=== PATIENT | female | born 1965 | race Caucasian/White ===

== ENCOUNTER 2025-05-16 13:33 | Inpatient (IN) | payer MEDICARE, MEDICAID, SELFPAY ==
[2025-05-16] VITALS (10 sets, daily range): BP systolic 130–149; BP diastolic 63–85; PULSE 74–176; RESP 15–26; TEMP 35.8–36.3; O2SAT 91–98; BMI 28.6
--- NOTE | 2025-05-16 13:39 | PCM.HP.STD ---
HPI - General General Date of Admission: 05/16/25 Date of Service: 05/16/25 Chief Complaint: Worsen shortness of breath HPI Narrative GET BANKS, is a 59 F who presented to [facility] on 05/16/2025 as a transfer from [place] for worsening shortness of breath. Patient was recently diagnosed with non-small cell lung cancer and saw Dr. Meyers in the office here on 05/13. She lives in [place] and she initially was hospitalized there in February with shortness of breath and found to have a left upper lobe mass. Underwent bronchoscopy with biopsy there that showed 40 differentiated malignant epithelioid neoplasm favoring non-small cell carcinoma. She established with oncology here and the plan is for port placement next week on 05/21 and then initiation of chemotherapy with Nivo/Ipi/Taxol/Carboplatin. On review of [facility] records, patient was hospitalized in [place] from 04/30-05/03 for shortness of breath and weakness. Chest x-ray then showed known left upper lobe masslike infiltrates with new interstitial markings concerning for pneumonia versus pneumonitis. She was treated for COPD exacerbation and pneumonia there with good improvement and she was discharged home on 2 L of oxygen. She has now noticed worsening shortness of breath with exertion especially over the past few days and she went to the [facility] ED for this. Chest x-ray report there noted complete opacification of the left hemithorax with shift of the mediastinal structures to the left with suspected atelectasis versus left-sided pleural effusion. She was given a dose of IV antibiotics for concern for postobstructive pneumonia and then transferred here for further evaluation. I saw the patient shortly after she arrived here. She was breathing comfortably on 4 L nasal cannula with saturations in the mid 90s. She denied any shortness of breath at rest but did note significant shortness of breath with minimal exertion. Denies cough or sputum production. Denies any fevers or chills. She has had pain associated with her cancer primarily in her left lower chest area underneath the breast and at that level in the left back as well. She has been on Percocet every 6 hours as needed for this with moderate relief of pain. She denies any other acute concerns currently. [facility] Medical History Requires oxygen therapy Anxiety Depression Allergic rhinitis Neuropathy GERD (gastroesophageal reflux disease) Lumbar radiculopathy Hyperlipidemia Diabetes Hypertension SVT (supraventricular tachycardia) COPD (chronic obstructive pulmonary disease) Nicotine abuse Mass of upper lobe of left lung Home Medications ?Medication ?Instructions ?Recorded ?Last Taken ?Type Supplemental Oxygen 2 l inhalation .continuous oxygen 04/16/25 05/16/25 History aspirin 81 mg tablet,delayed 81 mg PO QDAY heart health 04/16/25 05/15/25 History release (Adult Aspirin Regimen) escitalopram oxalate 20 mg tablet 20 mg PO QDAY mood 04/16/25 05/15/25 History gabapentin 300 mg capsule 300 mg PO TID neuropathy 04/16/25 05/14/25 History glimepiride 1 mg tablet 1 mg PO BID diabetes 04/16/25 05/14/25 History losartan 50 mg tablet 50 mg PO QDAY blood pressure 04/16/25 05/14/25 History mirtazapine 7.5 mg tablet 7.5 mg PO QDAY depression 04/16/25 05/14/25 History pravastatin 40 mg tablet 40 mg PO QHS cholesterol 04/16/25 05/14/25 History albuterol sulfate 90 mcg/actuation 2 puff inhalation Q4 PRN wheezing 04/23/25 05/16/25 History aerosol inhaler buspirone 10 mg tablet 10 mg PO TID PRN anxiety 04/23/25 05/14/25 History fluticasone furoate 200 1 ea inhalation QDAY breathing 04/23/25 05/14/25 History mcg-vilanterol 25 mcg/dose inhalation powder ipratropium 0.5 mg-albuterol 3 mg 3 ml inhalation Q4H PRN breathing 04/23/25 Unknown History (2.5 mg base)/3 mL nebulization soln multivitamin 1 tab PO QAM supplement 04/23/25 05/14/25 History ondansetron HCl 4 mg tablet 4 mg PO Q8H PRN nausea and vomiting 04/23/25 05/15/25 History tiotropium bromide 18 mcg capsule 1 cap inhalation QDAY breathing 04/23/25 05/15/25 History with inhalation device (Spiriva with HandiHaler) amoxicillin 500 mg-potassium 1 tab PO BID infection 05/13/25 05/16/25 History clavulanate 125 mg tablet (Augmentin) insulin glargine 100 unit/mL (3 40 unit subcut QHS diabetes 05/13/25 05/15/25 History mL) subcutaneous pen (Lantus Solostar U-100 Insulin) insulin lispro 100 unit/mL 10 unit subcut TID diabetes 05/13/25 05/15/25 History subcutaneous pen oxycodone-acetaminophen 5 mg-325 1 tab PO Q6H PRN pain 15 days #60 05/13/25 05/16/25 Rx mg tablet (Percocet) tabs Allergy/AdvReac Type Severity Reaction Status Date / Time Sulfa (Sulfonamide Allergy Vomiting Verified 05/13/25 13:23 Antibiotics) Family History Brother Cancer Prostate Grandmother Cancer Lung Surgical History History of arthroscopy of right knee History of lung biopsy Social History Smoking Status: Former smoker how long ago did patient quit smoking: Recently alcohol intake: never substance use type: marijuana ROS Constitutional Constitutional: Reports fatigue; Denies chills, fever(s) or weakness Eyes Eyes: Denies change in vision Cardiovascular Cardiovascular: Reports dyspnea on exertion and palpitations; Denies chest pain, edema or lightheadedness Respiratory/Chest Respiratory/Chest: Reports shortness of breath with exertion; Denies cough, productive cough, shortness of breath at rest or wheezing Gastrointestinal Gastrointestinal: Denies abdominal pain Musculoskeletal Musculoskeletal: Reports back pain; Denies arthralgias or myalgias Neurologic Neurologic: Denies dizziness, focal weakness or headache(s) Physical Exam Const alert, oriented x3, no apparent distress and average body habitus Constitutional Narrative: Upper middle-aged female, appears older than stated age, fatigued appearing but otherwise sitting back fairly comfortably in bed, conversing normally, in no acute distress. General Appearance: cooperative and comfortable HEENT normocephalic, head/scalp atraumatic, hearing grossly normal bilaterally, nasal mucous membranes and turbinates normal and moist oral mucous membranes Eyes PERRL, EOMs intact bilaterally and conjunctivae normal Neck full ROM Chest inspection of chest normal Resp normal respiratory effort and no use of accessory muscles Resp Narrative: Breathing comfortably on 4 L nasal cannula at rest. Severely diminished breath sounds on the left side throughout. Mildly diminished breath sounds in right lung base with mild crackles noted in mid right lung zone. No wheezing noted. Cardio regular rate, regular rhythm, no murmurs and peripheral pulses 2+ throughout GI normal to inspection, nondistended, normoactive bowel sounds, soft to palpation, non-tender and non-distended Back/Spine normal ROM Extremity normal to inspection, full ROM and no pedal edema Skin no rashes or lesions noted Neuro moves all extremities and no focal motor deficits Speech: speech normal Motor Exam: strength 5/5 throughout Psych mental status grossly normal Results Lab / Micro Data 05/16/25 14:58 05/16/25 14:58 Assessment & Plan Assessment/Plan (1) Non-small cell lung cancer: QUALIFIERS: Laterality: left Qualified Code(s): C34.92 - Malignant neoplasm of unspecified part of left bronchus or lung (2) Pleural effusion, left: PLAN: Plan Patient is a 59-year-old female who presented [facility] on 05/16/2025 as a transfer from [facility] in [place] for worsening shortness of breath. 1. Acute hypoxia in setting of COPD with chronic hypoxic respiratory failure due to non-small cell lung cancer with worsening left-sided opacities and left pleural effusion ? Admit under inpatient status to PCU. Pulmonology consulted. Recent diagnosis of non-small cell lung cancer and follows with Dr. Meyers, see HPI for further details. CT chest on admit here shows complete opacification of the left IV thorax due to a combination of pleural effusion and postobstructive pneumonitis/volume loss in the left lung. Discussed with Dr. Ochoa with pulmonology and he recommended therapeutic thoracentesis and noted that given new cancer diagnosis with no chemotherapy or radiation initiated yet, will hold off bronchoscopy at this time. Radiology consulted for thoracentesis. Will treat with IV vancomycin and Zosyn for postobstructive pneumonia. Sputum culture ordered. On home 2 L and requiring 4 L on admit here. Continue home inhalers and wean supplemental oxygen as able. 2. New onset A-fib with RVR ? In normal sinus rhythm on arrival here but flipped into A-fib with RVR with rate in the 170s shortly after. Patient reports episodes of palpitations similar to this over the past few weeks but she has no prior diagnosis of A-fib noted. Suspect new A-fib is related to cardiac irritation from lung cancer as above. Given IV Cardizem bolus with conversion back to normal sinus rhythm. However, after breathing treatment she flipped back into A-fib with RVR. Will start on p.o. Cardizem 30 mg every 6 hours for now. Low threshold to utilize Cardizem drip as needed for uncontrolled A-fib. Will start heparin drip for anticoagulation now as well with plan for thoracentesis as above. Echocardiogram ordered. 3. Normocytic anemia ? Hemoglobin 9.3 on admit, MCV 80. Last hemoglobin in our system was 10.8 on 04/23. No active signs of bleeding noted. Iron studies with ferritin, B12 and folate ordered. Monitor daily CBC. 4. Acute on chronic debility ? PT/OT/case management consulted. Patient lives at home alone and reports worsening weakness at home along with severe shortness of breath with exertion. Appreciate therapy recommendations. 5. Cancer related pain ? Follows with Dr. Meyers as above. Continue oxycodone?acetaminophen 1 tablet every 6 hours as needed. 6. Type 2 diabetes mellitus with diabetic neuropathy ? Blood glucose on admit and A1c are pending. Will treat with reduced dose from home of Lantus 30 units at night and Humalog 7 units with meals plus sliding scale insulin, adjust as needed. Continue home gabapentin. 7. Anxiety/depression ? Stable. Continue home escitalopram, BuSpar as needed and mirtazapine at night. 8. Hypertension/hyperlipidemia ? Normotensive on admit here. However, given new onset A-fib as above we will hold home losartan for now. Continue home statin. DVT prophylaxis: Not indicated, on heparin drip CODE STATUS: Full code, verified Expected disposition: TBD Total clinical time spent by myself addressing the patient's medical issues, reviewing all the data, and collaborating with patient's care team: 75 minutes. Charges/Coding Visit Charges Inpatient E&M: 43660 Init Hosp L3
--- NOTE | 2025-05-16 14:25 | CT_ITS ---
PROCEDURE: CHEST WITHOUT CONTRAST 05/16/2025 REASON FOR EXAM: OUTSIDE CXR W/ L LUNG WHITEOUT History of lung cancer. TECHNIQUE: Chest CT without contrast. Coronal and Sagittal reconstruction series were provided. One or more dose reduction techniques were used (e.g., Automated exposure control, adjustment of the mA and/or kV according to patient size, use of iterative reconstruction technique RADIATION DOSE SUMMARY: CTDlvol: 15.37 MGy DLP: 572.4 mGycm COMPARISON: None FINDINGS: Hardware: A right-sided port a catheter is seen with the tip in the superior vena cava. Lymph nodes: Enlarged mediastinal lymph nodes. Heart and Vasculature: Coronary artery calcification. Coronary Artery Calcifications: Present Lungs and Airways: There is complete opacification of the left hemithorax due to a combination of a moderate-sized pleural effusion and volume loss and possible postobstructive pneumonitis of the right lung. There is narrowing of the intermediate stem bronchus on the left side. A neoplastic process should be ruled out. Small right pleural effusion with the right basilar infiltration and/or atelectasis. There is prominence of interstitial markings within the right lung suggestive of possible interstitial spread. Several scattered small non the script right pulmonary nodules. Upper Abdomen: Bilateral adrenal enlargement more prominent on the right side. Bones: Multilevel degenerative changes. CT/Chest without Contrast IMPRESSION: Coronary artery calcification (CAC) is is present Complete opacification of the left hemithorax due to a combination of pleural e ffusion and postobstructive pneumonitis/volume loss in the left lung. Narrowing of the left upper lobe and intermediate stem bronchus. Small right pleural effusion with right basilar infiltrate and interstitial toni nges in the right lung suggestive of lymphangitic spread. Multiple nodules seen in the right lung. Enlargement of the mediastinal lymph nodes. Reading Location: [place] [id number]
--- NOTE | 2025-05-16 15:25 | ECHOD_ITS ---
Reason For Study Reason For Study: ATRIAL FIB-FLUTTER Procedure This was a 2D Doppler, Color Flow transthoracic echocardiogram. Exam performed portable in patient room. Left Ventricle Normal size and thickness. The LV ejection fraction is 65 %. Normal diastology for age. Right Ventricle Normal right ventricle. Atria The left and right atria are normal. Mitral Valve Mild mitral annular calcification. Tricuspid Valve Normal tricuspid valve. Aortic Valve Trisinus/trileaflet aortic valve. Mildly calcified aortic valve annulus. Pulmonic Valve The pulmonic valve is not well visualized. Trivial pulmonic valve insufficiency. Great Vessels Normal sized aortic root. Pericardium/Pleural No pericardial effusion. MMode/2D Measurements & Calculations LVIDd: 4.6 cm IVSd: 0.75 cm Ao root diam: 2.7 cm LVIDs: 3.0 cm LVPWd: 1.1 cm RVDd: 2.8 cm FS: 34.7 % LAV(MOD-bp): 34.0 ml LVAd ap4: 21.3 cm2 SV(MOD-sp4): 34.3 ml LAV(MOD-bp) Indexed: 17.5 ml/m2 LVLd ap4: 6.4 cm SI(MOD-sp4): 17.6 ml/m2 LAV(MOD-sp2): 32.3 ml EDV(MOD-sp4): 56.4 ml LAV(MOD-sp4): 35.7 ml EDV(sp4-el): 60.0 ml LVAs ap4: 11.8 cm2 LVLs ap4: 5.2 cm ESV(MOD-sp4): 22.1 ml ESV(sp4-el): 23.1 ml EF(MOD-sp4): 60.8 % EF(sp4-el): 61.5 % SV(sp4-el): 36.9 ml LA A4 area: 14.6 cm2 LA dimension(2D): 2.9 cm RA A4 area: 13.9 cm2 TAPSE: 2.1 cm Time Measurements MV dec time: 0.20 sec Doppler Measurements & Calculations MV E max mateo: 95.4 cm/sec Lat Peak E' Mateo: 11.0 cm/sec Med Peak E' Mateo: 8.5 cm/sec MV A max mateo: 104.1 cm/sec E/E' lat: 8.7 E/E' med: 11.3 MV E/A: 0.92 Ao V2 max: 141.0 cm/sec LV V1 max: 133.1 cm/sec PA V2 max: 95.7 cm/sec Ao max P.0 mmHg LV V1 max P.1 mmHg ECHO/Echo Complete Interpretation Summary The LV ejection fraction is 65 %. Mild mitral annular calcification. Mildly calcified aortic valve annulus. Ordering Physician: Ion Staton Referring Physician: ROSANNA RAMOS Performed By: Laura Hawkins RDCS
[2025-05-16 15:52] LABS: Hematocrit 30.8 % (37-47); Hemoglobin 9.3 g/dL (12.0-15.0); Immature Granulocytes Count 0.050 X10^3/uL (0.0-0.0); Mean Corp Hgb Conc 30.2 g/dL (32-36); Mean Corpuscular Volume 80.4 fL (81-99); Mean Platelet Vol. 9.8 fl (6.2-12.0); NRBC Flagged by Analyzer 0 % (0-5); POSITIVE DIFFERENTIAL YES; Platelet Count 373 K/mm3 (150-450); RBC Distribution Width CV 16.4 % (11.6-14.6); RBC Distribution Width SD 47.8 fl (35.1-43.9); Red Blood Count 3.83 M/mm3 (4.2-5.4); White Blood Count 14.4 K/mm3 (4.4-11.0)
[2025-05-16] MEDS: Budesonide Respules 0.5 MG/2 ML AMPUL.NEB. INHALATION ×2 (16:16→20:30)
[2025-05-16] MEDS: Vancomycin HCl 2,000 MG in 0.9% Normal Saline (500mL Bag) 500 ML 250 MG IV (16:22)
[2025-05-16 17:05] LABS: Prothrombin Time (Protime)PT. 14.7 SECONDS (11.7-14.9)
[2025-05-16 17:06] LABS: Partial Thromboplast Time 31.4 Seconds (24.1-36.2)
[2025-05-16 17:17] LABS: Procalcitonin 0.16 ng/mL (<=0.10)
[2025-05-16 17:19] LABS: AST(SGOT) 16 U/L (<=31); Alanine Aminotransfer ALT/SGPT 6 U/L (<=34); Albumin, Serum 2.3 g/dL (3.4-4.8); Alkaline Phosphatase 126 U/L (35-104); Anion Gap 17 (5-15); BUN 12 mg/dL (4-19); BUN/Creat Ratio 14.1 RATIO (10-20); Calcium,Total 8.5 mg/dL (7.6-11.0); Carbon Dioxide 26.3 mmol/L (21.0-32.0); Chloride 89 mmol/L (98-108); Estimated Creatinine Clearance 74.36 ml/min (50-250); Globulin 4.6 g/dL (2.2-4.2); Glucose 587 mg/dL (70-99); Potassium 4.5 mmol/L (3.3-5.1)
--- NOTE | 2025-05-16 17:30 | PCM.RX.CS ---
Consult Antibiotic Management Pharmacy has been consulted to manage selected antibiotic: Vancomycin Type of Intervention Type of Consult: New start Suspected Infection Suspected Infection: Pneumonia Prior Doses of Antibiotics Prior Doses of Antibiotics Received/Current Regimen: Vancomycin 2000 mg IV x 1 given 05/16/25 @ 1622 Labs Labs: Sodium 132 mmol/L (133-145) L 05/16/25 14:58 Potassium 4.5 mmol/L (3.3-5.1) 05/16/25 14:58 Chloride 89 mmol/L (98-108) L 05/16/25 14:58 Carbon Dioxide 26.3 mmol/L (21.0-32.0) 05/16/25 14:58 Anion Gap 17 (5-15) H 05/16/25 14:58 BUN 12 mg/dL (4-19) 05/16/25 14:58 Creatinine 0.88 mg/dL (0.70-1.20) 05/16/25 14:58 Est GFR (MDRD) Non-Af 75 (>60) 05/16/25 14:58 BUN/Creatinine Ratio 14.1 RATIO (10-20) 05/16/25 14:58 Glucose 587 mg/dL (70-99) H* 05/16/25 14:58 Dosing Weight Weight used for dosin kg Estimated Creatinine Clearance Estimated Creatinine Clearance: ~ 74 Goal Trough Goal Trough: 15-20 mcg/mL Pharmacy Plan for Drug Dosing Pharmacy Plan for Drug Dosing: Vancomycin 2000 mg IV x 1 followed by 1250 mg q12h Pharmacy Service will continue to monitor and adjust dosing as required. Follow-Up Labs Follow-Up Labs: Trough: Vancomycin Date/Time Labs Ordered Labs to be done on [date and time ordered]: 05/18/25 @ 5024
[2025-05-16] MEDS: HEPARIN/D5w 25,000 UNITS 25,000 UNITS/250 ML IV.SOLN. 12.5 UNITS CONT INF (18:01)
[2025-05-16 18:16] LABS: LDH 381 U/L (84-246)
[2025-05-16 19:55] LABS: Ferritin 1440 ng/mL (22-378); Iron 17 ug/dL (50-170); Iron Binding Capacity,Unsat 104 ug/dL (228-428); Vitamin B12 498 pg/mL (180-914)
[2025-05-16 20:07] LABS: Iron Binding Capacity,Total 121 ug/dL (250-450)
[2025-05-16] MEDS: Piperacil/Tazobactam 3.375 GM in 0.9% Normal Saline (50mL MB+) 50 ML IV (22:05)
[2025-05-16] MEDS: Insulin Glargine-YFGN 100 UNIT/ML Pen 40 UNIT SC (22:36)
[2025-05-16 23:05] LABS: Glucose 676 mg/dL (70-99)
[2025-05-16 23:14] LABS: BETA-HYDROXYBUTYRATE 0.1 mmol/L (0.0-0.3)
[2025-05-16 23:27] LABS: FI02 4.0; SITE Not entered; VBG BASE EXCESS 13 mmol/L (-1.0-3.5); VBG PO2 91 mmHg (25-40); VBG SO2 98 % (50-70); VBG TCO2 37 mmol/L (23-33)
[2025-05-17] VITALS (14 sets, daily range): BP systolic 129–160; BP diastolic 69–88; PULSE 58–82; RESP 14–20; TEMP 36.2–36.9; O2SAT 93–99
[2025-05-17 00:34] LABS: Partial Thromboplast Time 52.0 Seconds (24.1-36.2)
[2025-05-17] MEDS: Heparin Nomogram Adjustment 5,000 UNIT/ML VIAL 5000 UNIT IV (01:09)
[2025-05-17] MEDS: Vancomycin HCl 1,250 MG in 0.9% Normal Saline (250mL Bag) 250 ML 167 MG IV ×2 (03:54→17:42)
[2025-05-17 04:42] LABS: Vancomycin, Trough Level 14.3 ug/mL (5.0-15.0)
[2025-05-17] MEDS: Piperacil/Tazobactam 3.375 GM in 0.9% Normal Saline (50mL MB+) 50 ML IV ×3 (05:57→22:21)
[2025-05-17] MEDS: Budesonide Respules 0.5 MG/2 ML AMPUL.NEB. INHALATION ×2 (06:55→19:10)
[2025-05-17 08:25] LABS: Partial Thromboplast Time 72.5 Seconds (24.1-36.2)
--- NOTE | 2025-05-17 08:29 | PCM.PN.HOSP ---
Reason for Visit Chief Complaint: Worsen shortness of breath Objective Data Objective Data Vital Signs: Vital Signs Temp Pulse Resp BP Pulse Ox O2 Del Method O2 Flow Rate 97.4 F L 80 20 H 158/78 H 99 Nasal Cannula 4 05/17/25 05:50 05/17/25 07:36 05/17/25 07:36 05/17/25 05:50 05/17/25 07:36 05/17/25 07:36 05/17/25 07:36 Oxygen Flow Rate (L/min) 4 Oxygen Delivery Method Nasal Cannula Weight: 183 lb Body Mass Index (BMI) 28.6 Intake & Output: Intake and Output for Last 24 Hours 05/15/25 05/16/25 05/17/25 23:59 23:59 23:59 Intake Total 1140 / 1140 513.33 / 513.33 Output Total 1200 / 1200 Balance -60 / -60 513.33 / 513.33 Lab / Micro Data 05/16/25 14:58 05/16/25 21:05 Labs: Laboratory Results - last 24 hr 05/16/25 14:58: WBC 14.4 H, RBC 3.83 L, Hgb 9.3 L, Hct 30.8 L, MCV 80.4 L, MCH 24.3 L, MCHC 30.2 L, RDW Std Deviation 47.8 H, RDW Coeff of Rene 16.4 H, Plt Count 373, MPV 9.8, Immature Gran % (Auto) 0.300, Neut % (Auto) 95.5 H, Lymph % (Auto) 2.1 L, Bosque % (Auto) 1.9, Eos % (Auto) 0.1, Baso % (Auto) 0.1, Absolute Neuts (auto) 13.8 H, Absolute Lymphs (auto) 0.31 L, Nucleated RBC % 0, Sodium 132 L, Potassium 4.5, Chloride 89 L, Carbon Dioxide 26.3, Anion Gap 17 H, BUN 12, Creatinine 0.88, Estim Creat Clear Calc 74.36, Est GFR (MDRD) Non-Af 75, BUN/Creatinine Ratio 14.1, Glucose 587 H*, Calcium 8.5, Iron 17 L, TIBC 121 L, Iron Saturation 14.0, Unsaturated IBC 104 L, Ferritin 1440 H, Total Bilirubin 0.17, AST 16, ALT 6, Alkaline Phosphatase 126 H, Lactate Dehydrogenase 381 H, Total Protein 6.9, Albumin 2.3 L, Globulin 4.6 H, Albumin/Globulin Ratio 0.5 L, Vitamin B12 498, Procalcitonin 0.16 H 05/16/25 16:33: PT 14.7, INR 1.1, APTT 31.4 05/16/25 17:12: POC Glucose > 500 H* 05/16/25 18:58: POC Glucose > 500 H* 05/16/25 21:05: Glucose 676 H*, b-Hydroxybutyric mmol/L 0.1 05/16/25 22:22: POC Glucose > 500 H* 05/16/25 23:20: POC Glucose > 500 H* 05/17/25 00:10: APTT 52.0 H 05/17/25 03:58: Vancomycin Trough 14.3 05/17/25 06:03: POC Glucose 427 H 05/17/25 07:05: APTT 72.5 H ABG Data ABG results: ABG 05/16/25 23:23 Specimen Type JOSE A Sample Site Not entered O2 % 4.0 VBG pH 7.50 H VBG pO2 91 H VBG HCO3 36 H VBG Total CO2 37 H VBG O2 Sat (Calc) 98 H VBG Base Excess 13 H POC Mix VBG pCO2 Pt Tmp 46.6 O2 Delivery Device Cannula Radiography Diagnostic Testing: Radiology Impression Chest CT 05/16/25 14:25 IMPRESSION: Coronary artery calcification (CAC) is is present Complete opacification of the left hemithorax due to a combination of pleural effusion and postobstructive pneumonitis/volume loss in the left lung. Narrowing of the left upper lobe and intermediate stem bronchus. Small right pleural effusion with right basilar infiltrate and interstitial changes in the right lung suggestive of lymphangitic spread. Multiple nodules seen in the right lung. Enlargement of the mediastinal lymph nodes. Reading Location: [place] [address] Physical Exam Narrative Seen and examined Patient admitted with extreme hypoxia and shortness of breath. Left lung whiteout. Diagnosed with left lung cancer with left upper lobe collapse. Dyspnea on laying flat. Orthopnea. Physical exam General: Alert, Oriented x3, Cooperative. BMI 28.7 kg/m? HEENT: Atraumatic, PERRLA, EOMI, Normocephalic. Oral: Oral mucosa dry. No Gingival or Mucosal Lesions/ Ulcerations Neck: Supple, No JVD, Negative Carotid Bruits Chest wall/Lungs: Air entry very diminished on the left lung anteriorly posteriorly and laterally. Left coarse rhonchi. Cardiovascular: Regular rate and rhythm, Normal S1,S2, systolic murmur. Abdomen: Bowel Sounds Present, Soft, Non Tender, Non-Distended : No dysuria. No renal angle tenderness. No suprapubic tenderness. Extremities: No edema, Capillary Refill Less than 3 Seconds Skin: No rashes, No breakdown Musculoskeletal: No Tenderness to Palpation of Joints or Extremities Neurological: Cranial nerves II-XII grossly intact, DTR 2+/4. No acute focal neurological deficit. Psych/Mental Status: Normal Affect, Appropriate. Assessment & Plan Assessment/Plan (1) Non-small cell lung cancer: QUALIFIERS: Laterality: left Qualified Code(s): C34.92 - Malignant neoplasm of unspecified part of left bronchus or lung (2) Pleural effusion, left: PLAN: Plan Patient is a 59-year-old female who presented [facility] on 05/[facility] as a transfer from [facility] in [place] for worsening shortness of breath. 1. Acute hypoxia in setting of COPD exacerbation with chronic hypoxic respiratory failure due to non-small cell lung cancer with worsening left-sided opacities and left pleural effusion ? Admit under inpatient status to PCU. Pulmonology consulted. Recent diagnosis of non-small cell lung cancer. CT chest on admit here shows complete opacification of the left IV thorax due to a combination of pleural effusion and postobstructive pneumonitis/volume loss in the left lung. Empirically with IV vancomycin and Zosyn for postobstructive pneumonia. Sputum culture ordered. On home 2 L and requiring 4 L on admit here. Continue home inhalers and wean supplemental oxygen as able. 05/17: Discussed with the belt sewer that given new cancer diagnosis with no chemotherapy or radiation initiated yet, will hold off bronchoscopy at this time. Plan for US guided thoracocentesis. Hold heparin drip. I talked to Dr. Meyers about patient's clinical condition and he thinks he does not have to see the patient in follow-up in the office. Dr. Meyers office note reviewed. 2. New onset A-fib with RVR probably cardiac irritation/lung cancer/respiratory failure/bronchodilator: Patient was normal sinus abdominal but went into A-fib RVR, heart rate 170/min. Patient reports episodes of palpitations similar to this over the past few weeks but she has no prior diagnosis of A-fib noted. Suspect new A-fib is related to cardiac irritation from lung cancer as above. Given IV Cardizem bolus with conversion back to normal sinus rhythm. On heparin drip on hold for thoracocentesis. Changed to Eliquis 5 mg p.o. twice daily. 2D echo shows EF 65% with mildly calcified aortic valve annulus and mitral valve annulus. DuoNeb changed to ipratropium nebulization. 3. Normocytic anemia ? Hemoglobin 9.3 on admit, MCV 80. Last hemoglobin in our system was 10.8 on 04/23. No active signs of bleeding noted. Iron studies with ferritin, B12 and folate ordered. Monitor daily CBC. 4. Acute on chronic debility ? PT/OT/case management consulted. Patient lives at home alone and reports worsening weakness at home along with severe shortness of breath with exertion. Appreciate therapy recommendations. 5. Cancer related pain ? Follows with Dr. Meyers as above. Continue oxycodone?acetaminophen 1 tablet every 6 hours as needed. 6. Type 2 diabetes mellitus with diabetic neuropathy Glucose very high more than 500. Lantus insulin and Humalog insulin dose increased. Discussed with the nursing staff ? Blood glucose on admit and A1c are pending. Will treat with reduced dose from home of Lantus 30 units at night and Humalog 7 units with meals plus sliding scale insulin, adjust as needed. Continue home gabapentin. 7. Anxiety/depression ? Stable. Continue home escitalopram, BuSpar as needed and mirtazapine at night. 8. Hypertension/hyperlipidemia ? Normotensive on admit here. However, given new onset A-fib as above we will hold home losartan for now. Continue home statin. Hypotonic isovolemic hyponatremia probably related to lung cancer/SIADH DVT prophylaxis: Not indicated, on heparin drip CODE STATUS: Full code, verified Laboratory Results 05/16/25 14:58: WBC 14.4 H, RBC 3.83 L, Hgb 9.3 L, Hct 30.8 L, MCV 80.4 L, MCH 24.3 L, MCHC 30.2 L, RDW Std Deviation 47.8 H, RDW Coeff of Rene 16.4 H, Plt Count 373, MPV 9.8, Immature Gran % (Auto) 0.300, Neut % (Auto) 95.5 H, Lymph % (Auto) 2.1 L, Bosque % (Auto) 1.9, Eos % (Auto) 0.1, Baso % (Auto) 0.1, Absolute Neuts (auto) 13.8 H, Absolute Lymphs (auto) 0.31 L, Nucleated RBC % 0, Sodium 132 L, Potassium 4.5, Chloride 89 L, Carbon Dioxide 26.3, Anion Gap 17 H, BUN 12, Creatinine 0.88, Estim Creat Clear Calc 74.36, Est GFR (MDRD) Non-Af 75, BUN/Creatinine Ratio 14.1, Glucose 587 H*, Calcium 8.5, Iron 17 L, TIBC 121 L, Iron Saturation 14.0, Unsaturated IBC 104 L, Ferritin 1440 H, Total Bilirubin 0.17, AST 16, ALT 6, Alkaline Phosphatase 126 H, Lactate Dehydrogenase 381 H, Total Protein 6.9, Albumin 2.3 L, Globulin 4.6 H, Albumin/Globulin Ratio 0.5 L, Vitamin B12 498, RBC Folate Hemolysate Pending, RBC Folate Pending, Hematocrit Pending, Procalcitonin 0.16 H 05/16/25 16:33: PT 14.7, INR 1.1, APTT 31.4 05/16/25 17:12: POC Glucose > 500 H* 05/16/25 18:58: POC Glucose > 500 H* 05/16/25 21:05: Glucose 676 H*, b-Hydroxybutyric mmol/L 0.1 05/16/25 22:22: POC Glucose > 500 H* 05/16/25 23:20: POC Glucose > 500 H* 05/16/25 23:23: Specimen Type JOSE A, Sample Site Not entered, O2 % 4.0, VBG pH 7.50 H, VBG pO2 91 H, VBG HCO3 36 H, VBG Total CO2 37 H, VBG O2 Sat (Calc) 98 H, VBG Base Excess 13 H, POC Mix VBG pCO2 Pt Tmp 46.6, O2 Delivery Device Cannula 05/17/25 00:10: APTT 52.0 H 05/17/25 03:58: Vancomycin Trough 14.3 05/17/25 06:03: POC Glucose 427 H 05/17/25 07:05: APTT 72.5 H 05/17/25 08:38: POC Glucose 404 H 05/17/25 11:40: POC Glucose 340 H Clinical Impression(s) from Imaging Studies Chest CT 05/16/25 14:25 IMPRESSION: Coronary artery calcification (CAC) is is present Complete opacification of the left hemithorax due to a combination of pleural effusion and postobstructive pneumonitis/volume loss in the left lung. Narrowing of the left upper lobe and intermediate stem bronchus. Small right pleural effusion with right basilar infiltrate and interstitial changes in the right lung suggestive of lymphangitic spread. Multiple nodules seen in the right lung. Enlargement of the mediastinal lymph nodes. Reading Location: [place] [address] Echocardiogram 05/16/25 15:25 Interpretation Summary The LV ejection fraction is 65 %. Mild mitral annular calcification. Mildly calcified aortic valve annulus. Ordering Physician: Ion Staton Referring Physician: ROSANNA RAMOS Performed By: Laura Hawkins RDCS Chest X-Ray 05/17/25 14:55 IMPRESSION: Increasing interstitial and patchy airspace disease of the left lung field. No pneumothorax. [facility] Charg[facility]/Coding Visit Charges Inpatient E&M: 12658 [facility] Hosp L3
--- NOTE | 2025-05-17 09:05 | PCM.PN.BLA ---
Progress Note Thoracentesis scheduled today 05/17/25 @ 1430. Heparin gtt to be held 4-6 hours preprocedure and resumed 6-8 hours postprocedure.
--- NOTE | 2025-05-17 10:14 | EX.PCM.CONCC ---
Assessment & Plan Assessment/Plan (1) Pleural effusion, left: (2) Non-small cell lung cancer: QUALIFIERS: Laterality: left Qualified Code(s): C34.92 - Malignant neoplasm of unspecified part of left bronchus or lung (3) COPD (chronic obstructive pulmonary disease): QUALIFIERS: COPD type: emphysema Emphysema type: centrilobular Qualified Code(s): J43.2 - Centrilobular emphysema PLAN: Plan RECOMMENDATIONS: 1. Proceed with ultrasound guided thoracentesis. Pleural fluid studies to be obtained along with cytology. 2. Antimicrobials as ordered. 3. Supplemental oxygen at baseline requirement of 2 L/min. 4. Continue bronchodilators and steroids. 5. Outpatient oncology follow-up for initiation of chemotherapy. IMPRESSIONS: 1. Shortness of breath Likely secondary to progression of the patient's known lung cancer leading to airway compromise and distal collapse coupled with suspected malignant pleural effusion. Recommend proceeding with ultrasound-guided thoracentesis. In light of the patient's history of COPD, she will be maintained on bronchodilator therapy and steroids. Antimicrobials will be continued to address suspected postobstructive pneumonia. Ultimately, the patient needs to be initiated on chemotherapy. There is nothing that I can do bronchoscopically to help alleviate the compression and collapse. 2. New onset atrial fibrillation/anemia/cancer related pain/diabetes mellitus/anxiety/depression Complicates care, management, recovery and prognosis. Continue home medications as indicated. This note was generated with [employer]ak[employer] dictation software. It may contain incorrect words, spelling, and punctuation that were not noted in checking the note before signing. HPI Consult Data Date of Consult: 05/17/25 HPI Narrative Reason for Consultation: Lung cancer HPI Narrative: The patient is a 59-year-old female, with a history as outlined below, who presented as a transfer of care from [facility] with worsening dyspnea. The patient carries a diagnosis of COPD, chronic hypoxemic respiratory failure with a baseline oxygen requirement of 2 L/min and newly diagnosed non-small cell lung cancer. The patient's lung cancer diagnosis was made last month and she is already established with Dr. Meyers of oncology. She was initially scheduled to undergo port placement today in order to be started on chemotherapy, prior to her admission to the hospital. The patient did have pet imaging completed on May 07, 2025 which demonstrated the presence of a moderate left-sided pleural effusion and multiple areas of mediastinal and bilateral pleural/pulmonary parenchymal hypermetabolic foci. It does appear that the patient's lung cancer diagnosis was initially made by bronchoscopy (performed at an outside hospital) on March 30, 2025 after biopsy was obtained from the left upper lobe lung mass. The patient is being actively followed in the pulmonary medicine clinic and is being maintained on a triple therapy inhaler regimen with Breo Ellipta and Spiriva. Following transfer here from [facility], a CT chest was obtained which demonstrated complete opacification of the left hemithorax with enlarged mediastinal lymph nodes along with a moderate pleural effusion and narrowing of the left mainstem bronchus, likely secondary to extrinsic compression. At the present time, the patient is maintaining appropriate oxygen saturations on her baseline 2 L/min requirement. She has been initiated on antimicrobials to cover for postobstructive pneumonia and is being maintained on bronchodilators. There are plans to proceed with ultrasound-guided thoracentesis this afternoon in radiology. [facility] Medical History (Updated 05/16/25 @ 17:49 by Brinda Mcmanus) Cancer (~04/12/25) Rheumatoid arthritis Chronic pain On home oxygen therapy Former smoker Atrial fibrillation (~05/16/25) Irregular heart beat Myocardial infarct Requires oxygen therapy Anxiety Depression Allergic rhinitis Neuropathy GERD (gastroesophageal reflux disease) Lumbar radiculopathy Hyperlipidemia Diabetes Hypertension SVT (supraventricular tachycardia) COPD (chronic obstructive pulmonary disease) Nicotine abuse Mass of upper lobe of left lung Home Medications ?Medication ?Instructions ?Recorded ?Last Taken ?Type Supplemental Oxygen 2 l inhalation .continuous oxygen 04/16/25 05/16/25 History aspirin 81 mg tablet,delayed 81 mg PO QDAY heart health 04/16/25 05/15/25 History release (Adult Aspirin Regimen) escitalopram oxalate 20 mg tablet 20 mg PO QDAY mood 04/16/25 05/15/25 History gabapentin 300 mg capsule 300 mg PO TID neuropathy 04/16/25 05/14/25 History glimepiride 1 mg tablet 1 mg PO BID diabetes 04/16/25 05/14/25 History losartan 50 mg tablet 50 mg PO QDAY blood pressure 04/16/25 05/14/25 History mirtazapine 7.5 mg tablet 7.5 mg PO QDAY depression 04/16/25 05/14/25 History pravastatin 40 mg tablet 40 mg PO QHS cholesterol 04/16/25 05/14/25 History albuterol sulfate 90 mcg/actuation 2 puff inhalation Q4 PRN wheezing 04/23/25 05/16/25 History aerosol inhaler buspirone 10 mg tablet 10 mg PO TID PRN anxiety 04/23/25 05/14/25 History fluticasone furoate 200 1 ea inhalation QDAY breathing 04/23/25 05/14/25 History mcg-vilanterol 25 mcg/dose inhalation powder ipratropium 0.5 mg-albuterol 3 mg 3 ml inhalation Q4H PRN breathing 04/23/25 Unknown History (2.5 mg base)/3 mL nebulization soln multivitamin 1 tab PO QAM supplement 04/23/25 05/14/25 History ondansetron HCl 4 mg tablet 4 mg PO Q8H PRN nausea and vomiting 04/23/25 05/15/25 History tiotropium bromide 18 mcg capsule 1 cap inhalation QDAY breathing 04/23/25 05/15/25 History with inhalation device (Spiriva with HandiHaler) amoxicillin 500 mg-potassium 1 tab PO BID infection 05/13/25 05/16/25 History clavulanate 125 mg tablet (Augmentin) insulin glargine 100 unit/mL (3 40 unit subcut QHS diabetes 05/13/25 05/15/25 History mL) subcutaneous pen (Lantus Solostar U-100 Insulin) insulin lispro 100 unit/mL 10 unit subcut TID diabetes 05/13/25 05/15/25 History subcutaneous pen oxycodone-acetaminophen 5 mg-325 1 tab PO Q6H PRN pain 15 days #60 05/13/25 05/16/25 Rx mg tablet (Percocet) tabs Allergy/AdvReac Type Severity Reaction Status Date / Time Sulfa (Sulfonamide Allergy Vomiting Verified 05/13/25 13:23 Antibiotics) Family History Brother Cancer Prostate Grandmother Cancer Lung Surgical History History of arthroscopy of right knee History of lung biopsy Social History Smoking Status: Former smoker how long ago did patient quit smoking: Recently alcohol intake: never substance use type: marijuana ROS ROS Narrative 10 systems were reviewed with pertinent positives as noted in the HPI above. Physical Exam Const alert and no apparent distress Constitutional Narrative: Resting comfortably in bed. General Appearance: cooperative HEENT normocephalic, head/scalp atraumatic and moist oral mucous membranes Eyes PERRL, EOMs intact bilaterally and conjunctivae normal Neck supple General: trachea midline Chest inspection of chest normal Resp normal respiratory effort Auscultation: wheezes and diminished lung sounds Cardio regular rate and regular rhythm GI normal to inspection, nondistended, normoactive bowel sounds Extremity no clubbing, cyanosis or edema Skin no rashes or lesions noted Neuro CN's II-XII intact bilaterally, moves all extremities and no focal motor deficits Psych cooperative and affect normal Lab / Micro Data 05/16/25 14:58 05/16/25 21:05 Labs: Laboratory Results - last 24 hr 05/16/25 14:58: WBC 14.4 H, RBC 3.83 L, Hgb 9.3 L, Hct 30.8 L, MCV 80.4 L, MCH 24.3 L, MCHC 30.2 L, RDW Std Deviation 47.8 H, RDW Coeff of Rene 16.4 H, Plt Count 373, MPV 9.8, Immature Gran % (Auto) 0.300, Neut % (Auto) 95.5 H, Lymph % (Auto) 2.1 L, Mathews % (Auto) 1.9, Eos % (Auto) 0.1, Baso % (Auto) 0.1, Absolute Neuts (auto) 13.8 H, Absolute Lymphs (auto) 0.31 L, Nucleated RBC % 0, Sodium 132 L, Potassium 4.5, Chloride 89 L, Carbon Dioxide 26.3, Anion Gap 17 H, BUN 12, Creatinine 0.88, Estim Creat Clear Calc 74.36, Est GFR (MDRD) Non-Af 75, BUN/Creatinine Ratio 14.1, Glucose 587 H*, Calcium 8.5, Iron 17 L, TIBC 121 L, Iron Saturation 14.0, Unsaturated IBC 104 L, Ferritin 1440 H, Total Bilirubin 0.17, AST 16, ALT 6, Alkaline Phosphatase 126 H, Lactate Dehydrogenase 381 H, Total Protein 6.9, Albumin 2.3 L, Globulin 4.6 H, Albumin/Globulin Ratio 0.5 L, Vitamin B12 498, Procalcitonin 0.16 H 05/16/25 16:33: PT 14.7, INR 1.1, APTT 31.4 05/16/25 17:12: POC Glucose > 500 H* 05/16/25 18:58: POC Glucose > 500 H* 05/16/25 21:05: Glucose 676 H*, b-Hydroxybutyric mmol/L 0.1 05/16/25 22:22: POC Glucose > 500 H* 05/16/25 23:20: POC Glucose > 500 H* 05/17/25 00:10: APTT 52.0 H 05/17/25 03:58: Vancomycin Trough 14.3 05/17/25 06:03: POC Glucose 427 H 05/17/25 07:05: APTT 72.5 H 05/17/25 08:38: POC Glucose 404 H ABG Data ABG results: ABG 05/16/25 23:23 Specimen Type JOSE A Sample Site Not entered O2 % 4.0 VBG pH 7.50 H VBG pO2 91 H VBG HCO3 36 H VBG Total CO2 37 H VBG O2 Sat (Calc) 98 H VBG Base Excess 13 H POC Mix VBG pCO2 Pt Tmp 46.6 O2 Delivery Device Cannula Imaging Radiology Impression Chest CT 05/16/25 14:25 IMPRESSION: Coronary artery calcification (CAC) is is present Complete opacification of the left hemithorax due to a combination of pleural effusion and postobstructive pneumonitis/volume loss in the left lung. Narrowing of the left upper lobe and intermediate stem bronchus. Small right pleural effusion with right basilar infiltrate and interstitial changes in the right lung suggestive of lymphangitic spread. Multiple nodules seen in the right lung. Enlargement of the mediastinal lymph nodes. Reading Location: [facility] Charges/Coding Visit Charges Inpatient E&M: 80381 Init Hosp L3
[2025-05-17] MEDS: Insulin Glargine-YFGN 100 UNIT/ML Pen 30 UNIT SC (10:34)
--- NOTE | 2025-05-17 11:06 | CASEMGMT ---
RN CM Assessment Face to Face with patient for initial transition planning/care coordination assessment. RN CM introduced self and role at [facility], pt voices understanding. Pt is A&Ox4 and is resting comfortably in bed and is calm. Care providers, pharmacy, and demographics verified. Admitting dx: Pneumonia/Cancer LACE Strata: 1 PCP: Celina Em Specialists: Mira (Oncology), Radha Pulmonary Medicine Preferred Pharmacy: [facility] Insurance: [employer]V, [employer]. Pt states that she does not have a CM through her Insurance Prescription Benefit: Yes LNOK: Michael [place] (Brother - Pt would like to make her brother the HCPOA, SW notified), Hailee [place] (DEVON) Living Arrangements: Pt lives alone in a single story home with a flat entrance ADLs/IADLs: Pt states that she is indep at baseline but is currently feeling weak. PT is ordered and pending Transportation: Self, friends. denies concerns DME: Home oxygen (states 2L continuous). Pt states that this is through [employer] but reports that her cable armorer operator is recommending transition to [facility] [place] for a POC. TC to [employer], no answer. E-Mail sent to Hemal ([facility] [employer] Liaison) to verify current orders. TC to [facility] [place]. [facility] [place] states that they have been in communication with the pt as well as the pt's DEVON. [facility] states that the pt will need to go home on the equipment supplied through [employer] and that they will then transition the pt to [facility] [place] once she gets home. Pt states that she has a concentrator, portable tanks (one in the room currently), pulse ox, nebulizer, and inhaler. Pt also states that she has a CBGM with sensors and sufficient pen needles for insulin shots. Pt states that she does not have a backup manual BGM but would appreciate an Rx for this. Pt states that she has a WC. Pt also reports that she would like a shower chair and does not have a preference on the DME company. Explained to the pt that insurance does not always cover these as the pt would have to qualify and that CM will provide a written Rx for the pt to shop around for one. Pt also educated on purchasing options through [employer]. States understanding. Pt denies needing a FWW at this time. HHC/SNF: denies hx of Pt?s goal: Home Plan: Anticipate home with skilled HHC, Palliative care referral, BGM Rx, shower chair rx, and follow for additional o2 needs. Pt educated about palliative care due to the cancer dx. Pt states that she would like a referral sent. Pt also states that she would like skilled HHC come to the home. Pt was educated on home bound status. Pt states understanding and that she currently feels as if she would qualify. CM to provide the pt with a list of local in-network HHC agencies. CM to follow PT evals. At this time, Dr Damico states that the pt will be here through the weekend. CM to follow. Report given to REGIONAL SALES EXECUTIVE CM. David Smith RN, CM
[2025-05-17] MEDS: 0.9% Saline Lock 10 ML Syringe IV ×4 (11:43→22:07)
--- NOTE | 2025-05-17 14:13 | CASEMGMT ---
Social Work - Advance Directives SW assisted pt in completing LW and HCPOA naming her brother Michael Clinton. Copy placed on chart and original given to pt. AUGUSTO Mendez
--- NOTE | 2025-05-17 14:26 | OP.PCM_ITS ---
Problems Associated Problem List Diagnoses (1) Pleural effusion, left: Multi Select Codes Radiology Radiology US Procedures: 34955 Thoracentesis Operative Report (Standard) Operative Information Date of Procedure: 05/17/25 Pre-Operative Diagnosis: Pleural effusion, left Post-Operative Diagnosis: Pleural effusion, left Surgery/Procedure Performed: Ultrasound-guided thoracentesis tension machine operator: No Type of Anesthesia: Local Procedure Start Time: 14:37 Procedure Stop Time: 14:56 Select all DRAINS/GRAFTS/IMPLANTS that apply: None Estimated Blood Loss: 0 Specimen collected: Yes Description of specimen(s) removed: 100 mL of cloudy dark yellow fluid Description of surgery: PROCEDURE: Ultrasound Guided Thoracentesis, left ORDERING PROVIDER: Dr. Hunt INDICATION: Female, 59 years old. Pleural effusion, left. PROVIDER: ROBERT De Luna PROCEDURE: The risks, benefits, and alternatives to the procedure were explained to the patient. The specific risks of bleeding, infection, and pneumothorax requiring chest tube insertion were discussed and accepted. Written informed consent was obtained. Patient was on IV heparin that was held at 0910 (~5 hours preprocedure). Resumption guidelines are 6-8 hours postprocedure if there are no contraindications. The patient was placed in the sitting, upright position. Ultrasonographic evaluation of the bilateral lower pleural spaces was carried out. An adequate pocket was identified in the left lower pleural space. The overlying skin was prepped with chlorhexidine and draped in sterile fashion. 2 % lidocaine was administered subcutaneously for local anesthesia. Under ultrasound guidance, a 5-Nepali thoracentesis needle/catheter system was advanced into the left posterior lower pleural fluid collection. 1240 ml of cloudy dark yellow colored fluid was drained. A sample sent to the lab for diagnostic purposes. The catheter was removed, and a sterile dressing was applied. The patient tolerated the procedure well without any immediate complications. A chest x-ray was ordered. There was no evidence of pneumothorax. IMPRESSION: Successful ultrasound guided thoracentesis of left pleural effusion. Surgical Findings: None Complications Complications: No
--- NOTE | 2025-05-17 14:40 | FLU_PTH ---
PATIENT: GET BANKS LOC: [facility]#:[id number] AGE/SX: 59/F ROOM: [facility] RE05/16/[address]: Dr. Fei Gaona MD : 1965 BED: 1 DIS: 05/21/2025 SPEC #: [id number] RECD: 05/17/25 15:35 STATUS: SOUParrish REQ #: [id number] JESÚS: 05/17/25 14:[address]: Anup Damico DEPT: CYTOLOGY RECD BY: Krishna Briggs ENTERED: 05/20/25 10:17 SP TYPE: Fluid OTHR DR: MD Dr. Zoltan Diallo MD Dr. Alexander Mosteller, DO Dr. Bruce Arthur, MD Dr. Derek Brown, DO Dr. David P Myers, MD DALIA YOUSSEF, MD Dr. Edward Matheis, MD Dr. Gautam Baskaran, MD Dr. Yordanos Habtegebriel, MD Dr. Hemant Dand, MD Dr. Jose Ochoa, MD Dr. Justin Wong, MD Dr. Kimber Foust, MD Dr. Lamia Aljundi, MD Dr. Marisa Magana, MD Dr. Pritam Ghosh, MD Dr. Pavan Irukulla, MD Dr. Robert Leininger, MD Dr. Saad Farooqi, MD Dr. Sukhdeep Dhesi, DO Dr. Sujoy Gill, MD Dr. Soleyah Groves, MD Dr. Timothy Fernstrom, MD Dr. Ren Marino Dr., MD Tissues: A - Pleural fluid, NOS Procedures: Special Stain Group II Surgery Specimen Level IV Cytospin Fluid HEADER OPERATION: Ultrasound guided thoracentesis PRE-OP DIAGNOSIS: Pleural effusion TISSUE SUBMITTED: A- Thoracentesis fluid for cytology DIAGNOSIS CYTOLOGY Reactive mesothelial cells and mixed inflammation (predominately acute). CYTOLOGY STUDY Slides are reviewed. CYTOLOGY GROSS A. Received is 80 ml of yellow-cloudy fluid labeled with the patient's name and and designated per the requisition as Thoracentesis fluid. Submitted for cytology and cell block preparation. Mr 05/20/2025 CPT: 53978
--- NOTE | 2025-05-17 14:43 | CASEMGMT ---
Social Work SW met with pt and introduced self and role of SW. Pt with a new cancer diagnosis in March. Pt is following with Dr. Meyers. Pt and SW discussed diagnosis and coping. Pt states she has a good support system. SW provided resources on [place], cleaning for a reason, home delivered meals, and Passport. SW made referral to [address] [facility] for [facility]port services. Pt is agreeable to adding SW to home health referral. RNCM updated. AUGUSTO Mendez
[2025-05-17] MEDS: Lidocaine 2% (20 ml mdv) 20 ML Vial INFILT (14:45)
--- NOTE | 2025-05-17 14:55 | RAD_ITS ---
EXAM: XR Chest, 1 View CLINICAL INDICATION: POST THORACENTESIS TECHNIQUE: Frontal view of the chest. COMPARISON: No relevant prior studies available. FINDINGS: LUNGS AND PLEURAL SPACES: Increasing interstitial and patchy airspace disease of the left lung field. No pneumothorax. HEART: Unremarkable. No cardiomegaly. MEDIASTINUM: Unremarkable. Normal mediastinal contour. BONES/JOINTS: Unremarkable. No acute fracture. RAD/Chest Insp/Exp 2 View IMPRESSION: Increasing interstitial and patchy airspace disease of the left lung field. No pneumothorax. Reading Location: [id number]
--- NOTE | 2025-05-17 16:12 | CHAPLAIN ---
Type of Pastoral Visit _x__ Initial Visit ___ Follow-up Visit ___ On-call Visit ___ General Patient Visit ___ Spiritual Assessment ___ Family Conference ___ Bereavement ___ Rapid Response ___ Code Blue ___ Other (describe below) Pastoral Care Referral From _x__ Patient ___ Family ___ Nurse ___ Physician ___ Daylight Driller ___ Life Science Taxonomist ___ Other (describe below) Sacrament/Intervention _x__ Active listening ___ Anointing ___ Presybeterian ___ Bereavement ___ Communion _x__ Jocelyne exploration ___ ___ Life review _x__ Prayer ___ Reconciliation ___ Sacrament of Sick _x__ Supportive presence ___ Wedding ___ Other (describe below) Pastoral Comments patient is sitting up in the bed and has a look of weariness and has some hesitation in breathing; pt acknowledges that she learned that she had a heart attack earlier, learned that she had lung cancer in March, and now has pneumonia; pt says it is all pileing up; pt also speaks of her desire to be baptized and that had been planned for last Tuesday but she was sick; pt hopes to still be baptized soon as I believe and want to have that done; pt is affirmed in her jocelyne and encouraged to pursue any suitable option to accomplish this sacrament; pt talks about her family as she is asked about her support system and how she can stay positive in this time; pt asks for prayer support
[2025-05-17] MEDS: Insulin Glargine-YFGN 100 UNIT/ML Pen 40 UNIT SC (16:57)
[2025-05-17] MEDS: Ipratropium 0.5 MG/2.5 ML SOLUTION INHALATION ×2 (19:10→22:36)
[2025-05-17] MEDS: APIXABAN 5 MG TABLET PO (22:07)
[2025-05-18] VITALS (10 sets, daily range): BP systolic 123–169; BP diastolic 61–73; PULSE 60–102; RESP 13–24; TEMP 36.2–37; O2SAT 94–97
[2025-05-18 04:25] LABS: Hematocrit 32.3 % (37-47); Hemoglobin 9.6 g/dL (12.0-15.0); Immature Granulocytes Count 0.110 X10^3/uL (0.0-0.0); Mean Corp Hgb Conc 29.7 g/dL (32-36); Mean Corpuscular Volume 81.0 fL (81-99); Mean Platelet Vol. 11.2 fl (6.2-12.0); NRBC Flagged by Analyzer 0 % (0-5); Platelet Count 255 K/mm3 (150-450); RBC Distribution Width CV 16.4 % (11.6-14.6); RBC Distribution Width SD 47.9 fl (35.1-43.9); Red Blood Count 3.99 M/mm3 (4.2-5.4); White Blood Count 15.6 K/mm3 (4.4-11.0)
[2025-05-18 05:00] LABS: Anion Gap 12 (5-15); BUN 18 mg/dL (4-19); BUN/Creat Ratio 25.4 RATIO (10-20); Calcium,Total 8.7 mg/dL (7.6-11.0); Carbon Dioxide 29.7 mmol/L (21.0-32.0); Chloride 94 mmol/L (98-108); Estimated Creatinine Clearance 90.88 ml/min (50-250); Glucose 256 mg/dL (70-99); Potassium 4.7 mmol/L (3.3-5.1)
[2025-05-18 05:02] LABS: Vancomycin, Trough Level 17.5 ug/mL (5.0-15.0)
--- NOTE | 2025-05-18 05:21 | PCM.RX.CS ---
Consult Antibiotic Management Pharmacy has been consulted to manage selected antibiotic: Vancomycin Type of Intervention Type of Consult: Follow-up Suspected Infection Suspected Infection: Pneumonia Labs Labs: Sodium 135 mmol/L (133-145) 05/18/25 04:10 Potassium 4.7 mmol/L (3.3-5.1) 05/18/25 04:10 Chloride 94 mmol/L (98-108) L 05/18/25 04:10 Carbon Dioxide 29.7 mmol/L (21.0-32.0) 05/18/25 04:10 Anion Gap 12 (5-15) 05/18/25 04:10 BUN 18 mg/dL (4-19) 05/18/25 04:10 Creatinine 0.72 mg/dL (0.70-1.20) 05/18/25 04:10 Est GFR (MDRD) Non-Af 95 (>60) 05/18/25 04:10 BUN/Creatinine Ratio 25.4 RATIO (10-20) H 05/18/25 04:10 Glucose 256 mg/dL (70-99) H 05/18/25 04:10 Vancomycin Trough 17.5 ug/mL (5.0-15.0) H 05/18/25 04:10 Microbiology Microbiology: Microbiology 05/17/25 16:30 Mucosa - Nose Coronavirus COVID-19 PCR - Final 05/17/25 16:30 Mucosa - Nose Respiratory Panel (PCR) - Final 05/17/25 15:22 Nasal Secretion MRSA (PCR) - Final 05/17/25 15:52 Urine, Clean Catch Legionella Antigen - Final 05/17/25 15:52 Urine, Clean Catch Streptococcus pneumoniae Antigen (M - Final Dosing Weight Weight used for dosin kg Estimated Creatinine Clearance Estimated Creatinine Clearance: 91 Goal Trough Goal Trough: 15-20 mcg/mL Pharmacy Plan for Drug Dosing Pharmacy Plan for Drug Dosing: Vancomycin trough level of 17.5, drawn 10.5hrs post-dose, was within the target range of 15-20. Will continue dosing at 1250mg q12h, and will draw another trough in two days. Pharmacy Service will continue to monitor and adjust dosing as required. Follow-Up Labs Follow-Up Labs: Trough: Vancomycin Date/Time Labs Ordered Labs to be done on [date and time ordered]: 05/20/25 @0400
[2025-05-18] MEDS: Piperacil/Tazobactam 3.375 GM in 0.9% Normal Saline (50mL MB+) 50 ML IV (05:51)
[2025-05-18] MEDS: Vancomycin HCl 1,250 MG in 0.9% Normal Saline (250mL Bag) 250 ML 167 MG IV ×2 (05:51→16:47)
[2025-05-18] MEDS: Vancomycin Trough/Random Due 1 LAB MC ×2 (05:51)
[2025-05-18] MEDS: 0.9% Saline Lock 10 ML Syringe IV ×3 (05:53→16:41)
[2025-05-18] MEDS: Budesonide Respules 0.5 MG/2 ML AMPUL.NEB. INHALATION ×2 (06:43→19:28)
[2025-05-18] MEDS: Ipratropium 0.5 MG/2.5 ML SOLUTION INHALATION ×5 (06:43→23:27)
[2025-05-18] MEDS: APIXABAN 5 MG TABLET PO ×2 (09:30→22:06)
[2025-05-18] MEDS: Insulin Glargine-YFGN 100 UNIT/ML Pen 40 UNIT SC ×2 (09:30→16:40)
[2025-05-18] MEDS: Ceftriaxone 2 GM in 0.9% Normal Saline (50mL MB+) 50 ML IV (12:04)
--- NOTE | 2025-05-18 13:51 | PN.HOSP_ITS ---
Reason for Visit Chief Complaint: Worsen shortness of breath Objective Data Objective Data Vital Signs: Vital Signs Temp Pulse Resp BP Pulse Ox O2 Del Method O2 Flow Rate 97.2 F L 62 16 144/61 H 96 Nasal Cannula 2 05/18/25 09:36 05/18/25 10:49 05/18/25 10:49 05/18/25 09:36 05/18/25 09:36 05/18/25 09:36 05/18/25 12:04 Oxygen Flow Rate (L/min) 2 Oxygen Delivery Method Nasal Cannula Weight: 182 lb 15.986 oz Body Mass Index (BMI) 28.6 Intake & Output: Intake and Output for Last 24 Hours 05/16/25 05/17/25 05/18/25 23:59 23:59 23:59 Intake Total 1140 / 1140 1550.00 / 1550.00 625 / 625 Output Total 1200 / 1200 2540 / 2540 Balance -60 / -60 -990.00 / -990.00 625 / 625 Lab / Micro Data 05/18/25 04:10 05/18/25 04:10 Labs: Laboratory Results - last 24 hr 05/17/25 16:55: POC Glucose 319 H 05/17/25 22:04: POC Glucose 156 H 05/18/25 04:10: WBC 15.6 H, RBC 3.99 L, Hgb 9.6 L, Hct 32.3 L, MCV 81.0, MCH 24.1 L, MCHC 29.7 L, RDW Std Deviation 47.9 H, RDW Coeff of Rene 16.4 H, Plt Count 255, MPV 11.2, Immature Gran % (Auto) 0.700, Neut % (Auto) 89.1 H, Lymph % (Auto) 4.7 L, [place] % (Auto) 5.3, Eos % (Auto) 0.0, Baso % (Auto) 0.2, Absolute Neuts (auto) 13.9 H, Absolute Lymphs (auto) 0.73 L, Nucleated RBC % 0, Sodium 135, Potassium 4.7, Chloride 94 L, Carbon Dioxide 29.7, Anion Gap 12, BUN 18, Creatinine 0.72, Estim Creat Clear Calc 90.88, Est GFR (MDRD) Non-Af 95, B UN/Creatinine Ratio 25.4 H, Glucose 256 H, Calcium 8.7, Vancomycin Trough 17.5 H 05/18/25 07:53: POC Glucose 296 H 05/18/25 11:42: POC Glucose 357 H Micro: Microbiology 05/17/25 16:30 Mucosa - Nose Coronavirus COVID-19 PCR - Final 05/17/25 16:30 Mucosa - Nose Respiratory Panel (PCR) - Final 05/17/25 15:22 Nasal Secretion MRSA (PCR) - Final 05/17/25 15:52 Urine, Clean Catch Legionella Antigen - Final 05/17/25 15:52 Urine, Clean Catch Streptococcus pneumoniae Antigen (M - Final Radiography Diagnostic Testing: Radiology Impression Chest X-Ray 05/17/25 14:55 IMPRESSION: Increasing interstitial and patchy airspace disease of the left lung field. No pneumothorax. Reading Location: [facility] Physical Exam Narrative Seen and examined Today, she is feeling better. On 2 to 3 L of oxygen. Heart rate and blood pressure better. Patient admitted with extreme hypoxia and shortness of breath. Left lung whiteout. Diagnosed with left lung cancer with left upper lobe collapse. Dyspnea on laying flat. Orthopnea. Physical exam General: Alert, Oriented x3, Cooperative. BMI 28.7 kg/m? HEENT: Atraumatic, PERRLA, EOMI, Normocephalic. Oral: Oral mucosa dry. No Gingival or Mucosal Lesions/ Ulcerations Neck: Supple, No JVD, Negative Carotid Bruits Chest wall/Lungs: Air entry very diminished on the left lung anteriorly posteriorly and laterally. Left coarse rhonchi. Cardiovascular: Regular rate and rhythm, Normal S1,S2, systolic murmur. Abdomen: Bowel Sounds Present, Soft, Non Tender, Non-Distended : No dysuria. No renal angle tenderness. No suprapubic tenderness. Extremities: No edema, Capillary Refill Less than 3 Seconds Skin: No rashes, No breakdown Musculoskeletal: No Tenderness to Palpation of Joints or Extremities Neurological: Cranial nerves II-XII grossly intact, DTR 2+/4. No acute focal neurological deficit. Psych/Mental Status: Normal Affect, Appropriate. Assessment & Plan Assessment/Plan (1) Non-small cell lung cancer: QUALIFIERS: Laterality: left Qualified Code(s): C34.92 - Malignant neoplasm of unspecified part of left bronchus or lung (2) Pleural effusion, left: PLAN: Plan Patient is a 59-year-old female who presented [facility] on 05[facility] as a transfer from [facility] in [place] for worsening shortness of breath. 1. Acute hypoxia in setting of COPD exacerbation with chronic hypoxic respiratory failure due to non-small cell lung cancer with worsening left-sided opacities and left pleural effusion ? Admit under inpatient status to PCU. Pulmonology consulted. Recent diagnosis of non-small cell lung cancer. CT chest on admit here shows complete opacification of the left IV thorax due to a combination of pleural effusion and postobstructive pneumonitis/volume loss in the left lung. Empirically with IV vancomycin and Zosyn for postobstructive pneumonia. Sputum culture ordered. On home 2 L and requiring 4 L on admit here. Continue home inhalers and wean supplemental oxygen as able. 05/17: Discussed with the buffing wheel operator that given new cancer diagnosis with no chemotherapy or radiation initiated yet, will hold off bronchoscopy at this time. Plan for US guided thoracocentesis. Hold heparin drip. I talked to Dr. Meyers about patient's clinical condition and he thinks he does not have to see the patient in follow-up in the office. Dr. Meyers office note reviewed. 05/18: She is feeling better with regards to oxygenation. She wants to walk around. Continue PT and OT and oxygen monitoring while walking. Continue the above treatment. Patient had 240 mL cloudy dark yellow fluid drained from left pleural effusion. Cell count, chemistry, culture and pH was ordered 2. New onset A-fib with RVR probably cardiac irritation/lung cancer/respiratory failure/bronchodilator: Patient was normal sinus abdominal but went into A-fib RVR, heart rate 170/min. Patient reports episodes of palpitations similar to this over the past few weeks but she has no prior diagnosis of A-fib noted. Suspect new A-fib is related to cardiac irritation from lung cancer as above. Given IV Cardizem bolus with conversion back to normal sinus rhythm. On heparin drip on hold for thoracocentesis. Changed to Eliquis 5 mg p.o. twice daily. 2D echo shows EF 65% with mildly calcified aortic valve annulus and mitral valve annulus. DuoNeb changed to ipratropium nebulization. 3. Normocytic anemia ? Hemoglobin 9.3 on admit, MCV 80. Last hemoglobin in our system was 10.8 on 04/23. No active signs of bleeding noted. Iron studies with ferritin, B12 and folate ordered. Monitor daily CBC. 05/18: H&H 9.6/32%. Platelet count normal. 4. Acute on chronic debility ? PT/OT/case management consulted. Patient lives at home alone and reports worsening weakness at home along with severe shortness of breath with exertion. Appreciate therapy recommendations. 5. Cancer related pain ? Follows with Dr. Meyers as above. Continue oxycodone?acetaminophen 1 tablet every 6 hours as needed. 6. Type 2 diabetes mellitus with diabetic neuropathy Glucose very high more than 500. Lantus insulin and Humalog insulin dose increased. Discussed with the nursing staff Continue home gabapentin. 05/18: Glucose is around 150-250. Better than yesterday. A1c ordered for tomorrow a.m. Lantus 40 units/mL twice daily. Lispro 25 units 3 times daily AC 7. Anxiety/depression ? Stable. Continue home escitalopram, BuSpar as needed and mirtazapine at night. 8. Hypertension/hyperlipidemia ? Normotensive on admit here. However, given new onset A-fib as above we will hold home losartan for now. Continue home statin. Hypotonic isovolemic hyponatremia probably related to lung cancer/SIADH DVT prophylaxis: Not indicated, on heparin drip CODE STATUS: Full code, verified Clinical Impression(s) from Imaging Studies Chest CT 05/16/25 14:25 IMPRESSION: Coronary artery calcification (CAC) is is present Complete opacification of the left hemithorax due to a combination of pleural effusion and postobstructive pneumonitis/volume loss in the left lung. Narrowing of the left upper lobe and intermediate stem bronchus. Small right pleural effusion with right basilar infiltrate and interstitial changes in the right lung suggestive of lymphangitic spread. Multiple nodules seen in the right lung. Enlargement of the mediastinal lymph nodes. Reading Location: [facility] Echocardiogram 05/16/25 15:25 Interpretation Summary The LV ejection fraction is 65 %. Mild mitral annular calcification. Mildly calcified aortic valve annulus. Ordering Physician: Ino Staton Referring Physician: ROSANNA RAMOS Performed By: Laura Hawkins RDCS Chest X-Ray 05/17/25 14:55 IMPRESSION: Increasing interstitial and patchy airspace disease of the left lung field. No pneumothorax. Reading Location: [id number] Charges/Coding Visit Charges Inpatient E&M: 88340 Subs Hosp L2
[2025-05-18 14:18] LABS: Body Fluid Mononuclear WBC # 0.262 10^3/uL; Body Fluid Mononuclear WBC % 23.9 %; Body Fluid Polynuclear WBC # 0.832 10^3/uL; Body Fluid Polynuclear WBC % 76.1 %; White Blood Count/Body Fluid 1.094 10^3/uL
[2025-05-18 14:42] LABS: Appearance/Body Fluid SL CLDY; Auto B Fluid Analyzer BKGD Ct COUNTS W/IN LIMITS (W/IN LIMITS); Color/Body Fluid YELLOW; Source- Body Fluid PLEURAL FLUID
[2025-05-18 15:20] LABS: Red Cell Count/Body Fluid 360 /mm3
[2025-05-18 15:24] LABS: AST(SGOT) 19 U/L (<=31); Alanine Aminotransfer ALT/SGPT 6 U/L (<=34); Albumin, Serum 2.1 g/dL (3.4-4.8); Alkaline Phosphatase 97 U/L (35-104); Bilirubin, Direct < 0.08 mg/dL (0.00-0.30); Globulin 4.2 g/dL (2.2-4.2); LDH 373 U/L (84-246)
[2025-05-18 15:47] LABS: Glucose, Body Fluid 259 mg/dL (Not Establ.)
[2025-05-18 16:42] LABS: Neutrophil (Segs) 71 %
[2025-05-18 18:34] LABS: Body Fluid QC Type(s) 0719 BF1
[2025-05-19] VITALS (11 sets, daily range): BP systolic 139–172; BP diastolic 58–83; PULSE 60–84; RESP 16–22; TEMP 36.4–37; O2SAT 92–98
[2025-05-19 04:37] LABS: Hematocrit 30.8 % (37-47); Hemoglobin 9.3 g/dL (12.0-15.0); Immature Granulocytes Count 0.200 X10^3/uL (0.0-0.0); Mean Corp Hgb Conc 30.2 g/dL (32-36); Mean Corpuscular Volume 79.2 fL (81-99); Mean Platelet Vol. 9.3 fl (6.2-12.0); NRBC Flagged by Analyzer 0 % (0-5); Platelet Count 411 K/mm3 (150-450); RBC Distribution Width CV 16.5 % (11.6-14.6); RBC Distribution Width SD 46.9 fl (35.1-43.9); Red Blood Count 3.89 M/mm3 (4.2-5.4); White Blood Count 19.9 K/mm3 (4.4-11.0)
[2025-05-19 05:19] LABS: Anion Gap 9 (5-15); BUN 24 mg/dL (4-19); BUN/Creat Ratio 35.4 RATIO (10-20); Calcium,Total 8.5 mg/dL (7.6-11.0); Carbon Dioxide 33.5 mmol/L (21.0-32.0); Chloride 98 mmol/L (98-108); Estimated Creatinine Clearance 96.23 ml/min (50-250); Glucose 139 mg/dL (70-99); Potassium 3.9 mmol/L (3.3-5.1)
[2025-05-19] MEDS: Vancomycin HCl 1,250 MG in 0.9% Normal Saline (250mL Bag) 250 ML 167 MG IV ×2 (05:24→16:45)
[2025-05-19] MEDS: Ipratropium 0.5 MG/2.5 ML SOLUTION INHALATION ×4 (06:56→19:57)
[2025-05-19] MEDS: Budesonide Respules 0.5 MG/2 ML AMPUL.NEB. INHALATION ×2 (06:56→19:57)
[2025-05-19] MEDS: APIXABAN 5 MG TABLET PO ×2 (08:49→21:39)
[2025-05-19] MEDS: 0.9% Saline Lock 10 ML Syringe IV ×3 (08:50→16:46)
[2025-05-19] MEDS: Ceftriaxone 2 GM in 0.9% Normal Saline (50mL MB+) 50 ML IV (08:59)
--- NOTE | 2025-05-19 13:35 | PN.HOSP_ITS ---
Reason for Visit Chief Complaint: Worsen shortness of breath Objective Data Objective Data Vital Signs: Vital Signs Temp Pulse Resp BP Pulse Ox O2 Del Method O2 Flow Rate 97.5 F L 65 16 139/83 H 96 Nasal Cannula 2 05/19/25 07:47 05/19/25 11:14 05/19/25 11:14 05/19/25 07:47 05/19/25 13:01 05/19/25 08:16 05/19/25 13:01 Oxygen Flow Rate (L/min) 2 Oxygen Delivery Method Nasal Cannula Weight: 182 lb 15.986 oz Body Mass Index (BMI) 28.6 Intake & Output: Intake and Output for Last 24 Hours 05/17/25 05/18/25 05/19/25 23:59 23:59 23:59 Intake Total 1550.00 / 1550.00 900 / 900 325 / 325 Output Total 2540 / 2540 Balance -990.00 / -990.00 900 / 900 325 / 325 Lab / Micro Data 05/19/25 04:14 05/19/25 04:14 Labs: Laboratory Results - last 24 hr 05/17/25 14:14: Fluid Total Protein 3.0, Fluid LDH > 2500 05/17/25 14:19: Fluid Glucose 259 05/17/25 14:40: Fluid Source PLEURAL FLUID, Fluid Color YELLOW, Fluid Appearance SL CLDY, Fluid WBC 1.094, Fluid RBC 360, Fluid Tot Cell Count 1.098 H, Fld Polynuclear WBCs # 0.832, Fld Polynuclear WBCs % 76.1, Fluid Mononuclear WBCs 0.262, Fld Mononuclear WBCs % 23.9, Fluid Neutrophils 71, Fluid Lymphocytes 29, Fl Pathologist Comment May follow, Fluid Comment 2 SEE COMMENT 05/18/25 04:10: Total Bilirubin 0.17, Direct Bilirubin < 0.08, AST 19, ALT 6, Alkaline Phosphatase 97, Lactate Dehydrogenase 373 H, Total Protein 6.3, Albumin 2.1 L, Globulin 4.2 05/18/25 16:36: POC Glucose 319 H 05/18/25 22:05: POC Glucose 93 05/19/25 04:14: WBC 19.9 H, RBC 3.89 L, Hgb 9.3 L, Hct 30.8 L, MCV 79.2 L, MCH 23.9 L, MCHC 30.2 L, RDW Std Deviation 46.9 H, RDW Coeff of Rene 16.5 H, Plt Count 411, MPV 9.3, Immature Gran % (Auto) 1.000 H, Neut % (Auto) 88.7 H, Lymph % (Auto) 4.2 L, [place] % (Auto) 6.0, Eos % (Auto) 0.0, Baso % (Auto) 0.1, Absolute Neuts (auto) 17.6 H, Absolute Lymphs (auto) 0.83, Nucleated RBC % 0, Sodium 141, Potassium 3.9, Chloride 98, Carbon Dioxide 33.5 H, Anion Gap 9, BUN 24 H, C reatinine 0.68 L, Estim Creat Clear Calc 96.23, Est GFR (MDRD) Non-Af 99, B UN/Creatinine Ratio 35.4 H, Glucose 139 H, Hemoglobin A1c 12.4 H, Calcium 8.5 05/19/25 07:50: POC Glucose 126 H 05/19/25 12:02: POC Glucose 270 H Micro: Microbiology 05/17/25 14:19 Fluid - Thoracentesis Fluid Gram Stain - Final 05/17/25 14:19 Fluid - Thoracentesis Fluid Body Fluid Culture - Preliminary No growth-Final to follow 05/17/25 16:30 Mucosa - Nose Coronavirus COVID-19 PCR - Final 05/17/25 16:30 Mucosa - Nose Respiratory Panel (PCR) - Final 05/17/25 15:22 Nasal Secretion MRSA (PCR) - Final 05/17/25 15:52 Urine, Clean Catch Legionella Antigen - Final 05/17/25 15:52 Urine, Clean Catch Streptococcus pneumoniae Antigen (M - Final Physical Exam Narrative Seen and examined She is feeling better. On 2 L of oxygen. Heart rate and blood pressure better. No fever Patient admitted with extreme hypoxia and shortness of breath. Left lung whiteout. Diagnosed with left lung cancer with left upper lobe collapse. Dyspnea on laying flat. Orthopnea. Physical exam General: Alert, Oriented x3, Cooperative. BMI 28.7 kg/m? HEENT: Atraumatic, PERRLA, EOMI, Normocephalic. Oral: Oral mucosa dry. No Gingival or Mucosal Lesions/ Ulcerations Neck: Supple, No JVD, Negative Carotid Bruits Chest wall/Lungs: Air entry improved on the left side after thoracocentesis. Left coarse rhonchi. Cardiovascular: Regular rate and rhythm, Normal S1,S2, systolic murmur. Abdomen: Bowel Sounds Present, Soft, Non Tender, Non-Distended : No dysuria. No renal angle tenderness. No suprapubic tenderness. Extremities: No edema, Capillary Refill Less than 3 Seconds Skin: No rashes, No breakdown Musculoskeletal: No Tenderness to Palpation of Joints or Extremities Neurological: Cranial nerves II-XII grossly intact, DTR 2+/4. No acute focal neurological deficit. Psych/Mental Status: Normal Affect, Appropriate. Assessment & Plan Assessment/Plan (1) Non-small cell lung cancer: QUALIFIERS: Laterality: left Qualified Code(s): C34.92 - Malignant neoplasm of unspecified part of left bronchus or lung (2) Pleural effusion, left: PLAN: Plan Patient is a 59-year-old female who presented [facility] on 05/16/[facility] as a transfer from [facility] in [place] for worsening shortness of breath. 1. Acute hypoxia in setting of COPD exacerbation with chronic hypoxic respiratory failure due to non-small cell lung cancer with worsening left-sided opacities and left pleural effusion ? Admit under inpatient status to PCU. Pulmonology consulted. Recent diagnosis of non-small cell lung cancer. CT chest on admit here shows complete opacification of the left IV thorax due to a combination of pleural effusion and postobstructive pneumonitis/volume loss in the left lung. Empirically with IV vancomycin and Zosyn for postobstructive pneumonia. Sputum culture ordered. On home 2 L and requiring 4 L on admit here. Continue home inhalers and wean supplemental oxygen as able. 05/17: Discussed with the static balancer that given new cancer diagnosis with no chemotherapy or radiation initiated yet, will hold off bronchoscopy at this time. Plan for US guided thoracocentesis. Hold heparin drip. I talked to Dr. Meyers about patient's clinical condition and he thinks he does not have to see the patient in follow-up in the office. Dr. Meyers office note reviewed. 05/18: She is feeling better with regards to oxygenation. She wants to walk around. Continue PT and OT and oxygen monitoring while walking. Continue the above treatment. Patient had 240 mL cloudy dark yellow fluid drained from left pleural effusion. Cell count, chemistry, culture and pH was ordered 05/19: Thoracocentesis fluid shows 76% polynuclear, 24% mononuclear, glucose 259, TP 3.0, LDH 120 2500, overall cloudy suggestive of exudate. Fluid/serum protein is less than 0.5 probably she got diuretic. Pleural fluid culture shows 2+ WBC, no organisms seen. 2. New onset A-fib with RVR probably cardiac irritation/lung cancer/respiratory failure/bronchodilator: Patient was normal sinus abdominal but went into A-fib RVR, heart rate 170/min. Patient reports episodes of palpitations similar to this over the past few weeks but she has no prior diagnosis of A-fib noted. Suspect new A-fib is related to cardiac irritation from lung cancer as above. Given IV Cardizem bolus with conversion back to normal sinus rhythm. On heparin drip on hold for thoracocentesis. Changed to Eliquis 5 mg p.o. twice daily. 2D echo shows EF 65% with mildly calcified aortic valve annulus and mitral valve annulus. DuoNeb changed to ipratropium nebulization. 05/19: Heart rate is controlled. 3. Normocytic anemia ? Hemoglobin 9.3 on admit, MCV 80. Last hemoglobin in our system was 10.8 on 04/23. No active signs of bleeding noted. Iron studies with ferritin, B12 and folate ordered. Monitor daily CBC. 05/18: H&H 9.6/32%. Platelet count normal. 05/19: Iron workup shows serum iron low, TIBC low, iron supplement 14%, ferritin high therefore suggestive of anemia of chronic disease. 4. Acute on chronic debility ? PT/OT/case management consulted. Patient lives at home alone and reports worsening weakness at home along with severe shortness of breath with exertion. Appreciate therapy recommendations. 5. Cancer related pain ? Follows with Dr. Meyers as above. Continue oxycodone?acetaminophen 1 tablet every 6 hours as needed. 6. Type 2 diabetes mellitus with diabetic neuropathy Glucose very high more than 500. Lantus insulin and Humalog insulin dose increased. Discussed with the nursing staff Continue home gabapentin. 05/18: Glucose is around 150-250. Better than yesterday. A1c ordered for tomorrow a.m. Lantus 40 units/mL twice daily. Lispro 25 units 3 times daily AC 05/19: Glucose 270. A1c 12.4%. 7. Anxiety/depression ? Stable. Continue home escitalopram, BuSpar as needed and mirtazapine at night. 8. Hypertension/hyperlipidemia ? Normotensive on admit here. However, given new onset A-fib as above we will hold home losartan for now. Continue home statin. Hypotonic isovolemic hyponatremia probably related to lung cancer/SIADH DVT prophylaxis: Not indicated, on heparin drip CODE STATUS: Full code, verified Clinical Impression(s) from Imaging Studies Chest CT 05/16/25 14:25 IMPRESSION: Coronary artery calcification (CAC) is is present Complete opacification of the left hemithorax due to a combination of pleural effusion and postobstructive pneumonitis/volume loss in the left lung. Narrowing of the left upper lobe and intermediate stem bronchus. Small right pleural effusion with right basilar infiltrate and interstitial changes in the right lung suggestive of lymphangitic spread. Multiple nodules seen in the right lung. Enlargement of the mediastinal lymph nodes. Reading Location: [place] [id number] Echocardiogram 05/16/25 15:25 Interpretation Summary The LV ejection fraction is 65 %. Mild mitral annular calcification. Mildly calcified aortic valve annulus. Ordering Physician: Ion Staton Referring Physician: ROSANNA RAMOS Performed By: Laura Hawkins RDCS Chest X-Ray 05/17/25 14:55 IMPRESSION: Increasing interstitial and patchy airspace disease of the left lung field. No pneumothorax. [facility] Charg[facility]/Coding Visit Charges Inpatient E&M: 13681 Subs Hosp L2
[2025-05-19 15:07] LABS: Folate, Hemolysate Test 363.0 ng/mL (Not Estab.); Folate, RBC (Hct) Test 43.7 % (34.0-46.6); Folates, RBC Test 831 ng/mL (>498)
[2025-05-19] MEDS: Insulin Glargine-YFGN 100 UNIT/ML Pen 40 UNIT SC (16:49)
[2025-05-19 19:56] LABS: Cytology, Body Fluid / CSF SEE PATHOLOGY REPORT
[2025-05-20] VITALS (14 sets, daily range): BP systolic 158–191; BP diastolic 68–79; PULSE 58–86; RESP 13–24; TEMP 36.3–36.7; O2SAT 86–96
[2025-05-20 05:08] LABS: Vancomycin, Trough Level 19.9 ug/mL (5.0-15.0)
--- NOTE | 2025-05-20 05:22 | PCM.RX.CS ---
Consult Antibiotic Management Pharmacy has been consulted to manage selected antibiotic: Vancomycin Type of Intervention Type of Consult: Follow-up Suspected Infection Suspected Infection: Pneumonia Labs Labs: Sodium 141 mmol/L (133-145) 05/19/25 04:14 Potassium 3.9 mmol/L (3.3-5.1) 05/19/25 04:14 Chloride 98 mmol/L (98-108) 05/19/25 04:14 Carbon Dioxide 33.5 mmol/L (21.0-32.0) H 05/19/25 04:14 Anion Gap 9 (5-15) 05/19/25 04:14 BUN 24 mg/dL (4-19) H 05/19/25 04:14 Creatinine 0.68 mg/dL (0.70-1.20) L 05/19/25 04:14 Est GFR (MDRD) Non-Af 99 (>60) 05/19/25 04:14 BUN/Creatinine Ratio 35.4 RATIO (10-20) H 05/19/25 04:14 Glucose 139 mg/dL (70-99) H 05/19/25 04:14 Vancomycin Trough 19.9 ug/mL (5.0-15.0) H 05/20/25 04:16 Microbiology Microbiology: Microbiology 05/17/25 14:19 Fluid - Thoracentesis Fluid Gram Stain - Final 05/17/25 14:19 Fluid - Thoracentesis Fluid Body Fluid Culture - Preliminary No growth-Final to follow 05/17/25 16:30 Mucosa - Nose Coronavirus COVID-19 PCR - Final 05/17/25 16:30 Mucosa - Nose Respiratory Panel (PCR) - Final 05/17/25 15:22 Nasal Secretion MRSA (PCR) - Final 05/17/25 15:52 Urine, Clean Catch Legionella Antigen - Final 05/17/25 15:52 Urine, Clean Catch Streptococcus pneumoniae Antigen (M - Final Dosing Weight Weight used for dosin kg Estimated Creatinine Clearance Estimated Creatinine Clearance: 96 Goal Trough Goal Trough: 15-20 mcg/mL Pharmacy Plan for Drug Dosing Pharmacy Plan for Drug Dosing: Vancomycin trough level of 19.9, drawn 11.5hrs post-dose, was within the target range of 15-20. Will continue dosing at 1250mg q12h, and will draw another trough level in two days. Pharmacy Service will continue to monitor and adjust dosing as required. Follow-Up Labs Follow-Up Labs: Trough: Vancomycin Date/Time Labs Ordered Labs to be done on [date and time ordered]: 05/22/25 @1813
[2025-05-20] MEDS: Vancomycin HCl 1,250 MG in 0.9% Normal Saline (250mL Bag) 250 ML 167 MG IV (05:33)
[2025-05-20] MEDS: 0.9% Saline Lock 10 ML Syringe IV ×4 (05:34→23:38)
[2025-05-20] MEDS: Budesonide Respules 0.5 MG/2 ML AMPUL.NEB. INHALATION ×2 (07:05→20:00)
[2025-05-20] MEDS: Ipratropium 0.5 MG/2.5 ML SOLUTION INHALATION ×5 (07:05→23:10)
[2025-05-20 08:41] LABS: Hematocrit 32.9 % (37-47); Hemoglobin 9.8 g/dL (12.0-15.0); Immature Granulocytes Count 0.310 X10^3/uL (0.0-0.0); Mean Corp Hgb Conc 29.8 g/dL (32-36); Mean Corpuscular Volume 80.4 fL (81-99); Mean Platelet Vol. 9.3 fl (6.2-12.0); NRBC Flagged by Analyzer 0 % (0-5); POSITIVE DIFFERENTIAL YES; Platelet Count 461 K/mm3 (150-450); RBC Distribution Width CV 16.6 % (11.6-14.6); RBC Distribution Width SD 48.9 fl (35.1-43.9); Red Blood Count 4.09 M/mm3 (4.2-5.4); White Blood Count 26.0 K/mm3 (4.4-11.0)
[2025-05-20 08:44] LABS: Differential Indicated SCAN CRITERIA MET
[2025-05-20] MEDS: Ceftriaxone 2 GM in 0.9% Normal Saline (50mL MB+) 50 ML IV (08:54)
[2025-05-20] MEDS: APIXABAN 5 MG TABLET PO ×2 (08:56→21:47)
--- NOTE | 2025-05-20 08:59 | CASEMGMT ---
Discharge Planning A list of?SNF providers including quality and resource use data and consistent with the patient's preferred geographic region, medical needs, and insurance network was created in [facility] Guide.? This list was provided to the SW. Martha Hitchcock Discharge Planning Asst.
--- NOTE | 2025-05-20 09:23 | DCINST_ITS ---
Discharge Instructions Dressing / Incision Discharge Activity: Return to Normal Activity Weight Bearing Status: Weight bearing as tolerated Dressing / Incision Call your doctor if you observe: Fever of 101 or Higher, Coldness, Increased Pain, Numbness or Tingling, Change in Color, Inability to urinate, Inability to have a bowel movement, Shortness of breath, Dizziness, Fainting spells, Swelling in the ankles, Chest pain, Prolonged hiccupping, Increased palpitations (irregular heartbeat) and Calf discomfort Follow Up Care When: IN 2 WEEKS Test Results: Test results from this visit will be discussed in further detail at your follow- up appointment, if applicable. Discharge Plan Admission Admit Date/Time: 05/16/25 13:33 Primary Reason for Your Visit: Sepsis COPD exacerbation, left lung, NSCLC with collapse and effusion Attending Provider: Anup Damico Primary Care Provider: ROSANNA RAMOS Consulting Providers: Anup Damico; Sunny Scott; Zoltan Phelps; Woody Melgoza; Alan Ochoa; Yovany Del Rio; Mayur Torres; Franky Haddad; Linda Levine; Delon Mcfarlane; Isidoro Durbin; Surendra Kelley; Opal Betts; Murphy Heard; Deborah Frey; Mathieu Ro; Jai Clark; Stone Fuentes; Yogi Rios; Evan Stinson; Taylor Trevino; Nico Smith; Geronimo Fair; Ren Toth; Ion Staton; Christiano Singh Discharge Orders/Prescriptions Prescriptions: New guaifenesin [Mucus Relief ER] 1,200 mg Tablet Extended Release 12hr 1,200 mg PO BID 7 Days Qty: 14 0RF Eliquis 5 mg Tablet 5 mg PO BID 30 Days Qty: 60 2RF insulin lispro [Humalog KwikPen Insulin] 100 unit/mL Insulin Pen 25 unit subcut TIDAC 30 Days Qty: 15 5RF Rx Instructions: Hold if glucose less than 130 mg/dl insulin lispro [Humalog KwikPen Insulin] 100 unit/mL Insulin Pen See Protocol subcut ACHS Qty: 0 0RF Protocol: 3. Sliding Scale Insulin Med Dosing Condition: 150-189 mg/dl = 1 unit Condition: 190-229 mg/dl = 2 units Condition: 230-269 mg/dl = 3 units Condition: 270-309 mg/dl = 4 units Condition: 310-349 mg/dl = 5 units Condition: 350-399 mg/dl = 6 units Condition: 400-449 mg/dl = 7 units Condition: Greater than 449 call physician Protocol Text: Suggested for: - Patients on Total Daily Insulin Dose of 37-55 units - Obese, infected, or steroid patients MEDIUM DOSING ALGORITHIM prednisone 10 mg tablet 10 mg PO DAILY Qty: 30 0RF Rx Instructions: 40 mg for 3 days 30 mg for 3 days, 20 mg for 3 days,and 10 mg for 3 days levofloxacin 500 mg tablet 500 mg PO DAILY 5 Days Qty: 5 0RF Continued escitalopram oxalate 20 mg tablet 20 mg PO QDAY gabapentin 300 mg capsule 300 mg PO TID glimepiride 1 mg tablet 1 mg PO BID losartan 50 mg tablet 50 mg PO QDAY mirtazapine 7.5 mg tablet 7.5 mg PO QDAY Supplemental Oxygen 2 l inhalation .continuous Patient Comments: Per patient oxygen was in the mid 80s on this Rx Instructions: 2L with rest and activity pravastatin 40 mg tablet 40 mg PO QHS albuterol sulfate 90 mcg/actuation HFA aerosol inhaler 2 puff inhalation Q4 PRN (Reason: wheezing) buspirone 10 mg tablet 10 mg PO TID PRN (Reason: anxiety) fluticasone furoate-vilanterol 200-25 mcg/dose blister with device 1 ea inhalation QDAY ipratropium-albuterol 0.5 mg-3 mg(2.5 mg base)/3 mL solution for nebulization 3 ml inhalation Q4H PRN (Reason: breathing) multivitamin Tablet 1 tab PO QAM ondansetron HCl 4 mg tablet 4 mg PO Q8H PRN (Reason: nausea and vomiting) tiotropium bromide [Spiriva with HandiHaler] 18 mcg capsule, w/inhalation device 1 cap inhalation QDAY oxycodone-acetaminophen [Percocet] 5-325 mg tablet 1 tab PO Q6H PRN (Reason: pain) 15 Days Qty: 60 0RF Changed insulin glargine [Lantus Solostar U-100 Insulin] 100 unit/mL (3 mL) insulin pen 32 unit subcut BID 30 Days Qty: 15 3RF Rx Instructions: Hold if glucose less than 130 mg/dl Discontinued aspirin [Adult Aspirin Regimen] 81 mg tablet,delayed release (DR/EC) 81 mg PO QDAY Patient Comments: Per patient she is not to be taking this for port placement amoxicillin-pot clavulanate [Augmentin] 500-125 mg tablet 1 tab PO BID insulin lispro 100 unit/mL insulin pen 10 unit subcut TID Referrals / Follow Up: Alan Ochoa DO [Med Staff - Active Staff] - Within 2 Weeks ROSANNA RAMOS MD [Primary Care Provider] - Scar Meyers MD [Med Staff - Active Staff] - Within 1 Week Disposition Disposition (needs filled in before D/C Order can be placed): Home, Self Care
--- NOTE | 2025-05-20 11:32 | PCM.CONS.GEN ---
Assessment & Plan Assessment/Plan (1) Pleural effusion, left: PLAN: Fluid cx neg so far, cytology pending. MRSA screen neg, other cxs neg. Treating for post-obstructive pneumonia. Will stop vanc, continue ceftriaxone. Plan on discharge home with 7 days cefdinir 300mg bid. Will follow, thank you (2) Non-small cell lung cancer: QUALIFIERS: Laterality: left Qualified Code(s): C34.92 - Malignant neoplasm of unspecified part of left bronchus or lung HPI Consult Data Date of Consult: 05/20/25 HPI Narrative Reason for Consultation: pneumonia HPI Narrative: GET BANKS, is a 59 F who presented 05/16 as transfer with 2 months progressive dyspnea, cough. No fever or chills. Recent dx lung cancer, has not started on chemo or radiation. Sputum is white. Admitted here, had thora done, on vanc/ceftriaxone, feeling better since procedure. Full ROS performed and neg except as noted above. [facility] Medical History Cancer (~04/12/25) Rheumatoid arthritis Chronic pain On home oxygen therapy Former smoker Atrial fibrillation (~05/16/25) Irregular heart beat Myocardial infarct Requires oxygen therapy Anxiety Depression Allergic rhinitis Neuropathy GERD (gastroesophageal reflux disease) Lumbar radiculopathy Hyperlipidemia Diabetes Hypertension SVT (supraventricular tachycardia) COPD (chronic obstructive pulmonary disease) Nicotine abuse Mass of upper lobe of left lung Home Medications ?Medication ?Instructions ?Recorded ?Last Taken ?Type Supplemental Oxygen 2 l inhalation .continuous oxygen 04/16/25 05/16/25 History escitalopram oxalate 20 mg tablet 20 mg PO QDAY mood 04/16/25 05/15/25 History gabapentin 300 mg capsule 300 mg PO TID neuropathy 04/16/25 05/14/25 History glimepiride 1 mg tablet 1 mg PO BID diabetes 04/16/25 05/14/25 History losartan 50 mg tablet 50 mg PO QDAY blood pressure 04/16/25 05/14/25 History mirtazapine 7.5 mg tablet 7.5 mg PO QDAY depression 04/16/25 05/14/25 History pravastatin 40 mg tablet 40 mg PO QHS cholesterol 04/16/25 05/14/25 History albuterol sulfate 90 mcg/actuation 2 puff inhalation Q4 PRN wheezing 04/23/25 05/16/25 History aerosol inhaler buspirone 10 mg tablet 10 mg PO TID PRN anxiety 04/23/25 05/14/25 History fluticasone furoate 200 1 ea inhalation QDAY breathing 04/23/25 05/14/25 History mcg-vilanterol 25 mcg/dose inhalation powder ipratropium 0.5 mg-albuterol 3 mg 3 ml inhalation Q4H PRN breathing 04/23/25 Unknown History (2.5 mg base)/3 mL nebulization soln multivitamin 1 tab PO QAM supplement 04/23/25 05/14/25 History ondansetron HCl 4 mg tablet 4 mg PO Q8H PRN nausea and vomiting 04/23/25 05/15/25 History tiotropium bromide 18 mcg capsule 1 cap inhalation QDAY breathing 04/23/25 05/15/25 History with inhalation device (Spiriva with HandiHaler) oxycodone-acetaminophen 5 mg-325 1 tab PO Q6H PRN pain 15 days #60 05/13/25 05/16/25 Rx mg tablet (Percocet) tabs apixaban 5 mg tablet (Eliquis) 5 mg PO BID 30 days #60 tabs 05/20/25 Unknown Rx guaifenesin 1,200 mg tablet, 1,200 mg PO BID 7 days #14 tabs 05/20/25 Unknown Rx extended release 12 hr (Mucus Relief ER) insulin glargine 100 unit/mL (3 32 unit (0.32 mL) subcut BID 05/20/25 Unknown Rx mL) subcutaneous pen (Lantus diabetes 30 days #15 mL Solostar U-100 Insulin) insulin lispro 100 unit/mL 25 unit (0.25 mL) subcut TIDAC 1 05/20/25 Unknown Rx subcutaneous pen (Humalog KwikPen month #15 mL (U-100) Insulin) insulin lispro 100 unit/mL See Protocol subcut ACHS #0 mL 05/20/25 Unknown Rx subcutaneous pen (Humalog KwikPen (U-100) Insulin) levofloxacin 500 mg tablet 500 mg PO DAILY 5 days #5 tabs 05/20/25 Unknown Rx prednisone 10 mg tablet 10 mg PO DAILY #30 tabs 05/20/25 Unknown Rx Allergy/AdvReac Type Severity Reaction Status Date / Time Sulfa (Sulfonamide Allergy Vomiting Verified 05/13/25 13:23 Antibiotics) Family History Brother Cancer Prostate Grandmother Cancer Lung Surgical History History of arthroscopy of right knee History of lung biopsy Social History Smoking Status: Former smoker how long ago did patient quit smoking: Recently alcohol intake: never substance use type: marijuana Physical Exam Const alert, oriented x3 and no apparent distress General Appearance: cooperative HEENT normocephalic and head/scalp atraumatic Eyes PERRL and EOMs intact bilaterally Neck supple and No nodes Resp Auscultation: rhonchi, wheezes and diminished lung sounds Cardio regular rate and regular rhythm GI soft to palpation, non-tender and non-distended Extremity General Extremity: Negative for edema Skin no rashes or lesions noted Neuro CN's II-XII intact bilaterally Lab / Micro Data Attestation: I reviewed the patient's lab results. 05/20/25 08:27 05/19/25 04:14 Labs: Laboratory Results - last 24 hr 05/16/25 14:58: RBC Folate Hemolysate 363.0, RBC Folate 831, Hematocrit 43.7 05/19/25 12:02: POC Glucose 270 H 05/19/25 16:47: POC Glucose 253 H 05/19/25 21:37: POC Glucose 257 H 05/20/25 04:16: Vancomycin Trough 19.9 H 05/20/25 04:27: POC Glucose 92 05/20/25 08:27: WBC 26.0 H, RBC 4.09 L, Hgb 9.8 L, Hct 32.9 L, MCV 80.4 L, MCH 24.0 L, MCHC 29.8 L, RDW Std Deviation 48.9 H, RDW Coeff of Rene 16.6 H, Plt Count 461 H, MPV 9.3, Immature Gran % (Auto) 1.200 H, Neut % (Auto) 89.7 H, Lymph % (Auto) 3.7 L, [place] % (Auto) 5.2, Eos % (Auto) 0.0, Baso % (Auto) 0.2, Absolute Neuts (auto) 23.3 H, Absolute Lymphs (auto) 0.97, Nucleated RBC % 0 Micro: Microbiology 05/17/25 14:19 Fluid - Thoracentesis Fluid Gram Stain - Final 05/17/25 14:19 Fluid - Thoracentesis Fluid Body Fluid Culture - Preliminary No growth-Final to follow 05/17/25 14:19 Fluid - Thoracentesis Fluid Anaerobic Culture - Preliminary No growth in 48 hours.
--- NOTE | 2025-05-20 11:36 | DS.PCM_ITS ---
Providers Date of Admission: 05/16/25 Date of Discharge: 05/20/25 Primary Care Physician: ROSANNA RAMOS MD Consultations 05/16/25 14:44 Consult: Tutor / Pulmonary Medicine Routine Consulting Provider: Intensivists/Pulmonary Med Reason for Consult: lung ca w/ L lung whiteout EMERGENT Consult: No Notified: Yes Date Notified: 05/16/25 Time Notified: 14:49 Method of Notification: Text 05/18/25 07:37 Consult: Infectious Disease Routine Consulting Provider: Christiano Singh Reason for Consult: [facility] in clusters on 05/16, Left pneumonia, NSCLC, L lung white out EMERGENT Consult: No Notified: Yes Date Notified: 05/18/25 Time Notified: 07:37 Method of Notification: Text Reason For Visit: PNEUMONIA/CANCER Diagnosis Discharge Diagnosis (1) Pleural effusion, left: Status: Acute Code(s): J90 - Pleural effusion, not elsewhere classified (2) Non-small cell lung cancer: Status: Chronic Code(s): C34.90 - Malignant neoplasm of unspecified part of unspecified bronchus or lung Qualifiers: Laterality: left Qualified Code(s): C34.92 - Malignant neoplasm of unspecified part of left bronchus or lung Plan Patient is a 59-year-old female who presented [facility] on 05/16/2025 as a transfer from [facility] in [place] for worsening shortness of breath. 1. Acute hypoxia in setting of COPD exacerbation with chronic hypoxic respiratory failure due to non-small cell lung cancer with worsening left-sided opacities and left pleural effusion ? Admit under inpatient status to PCU. Pulmonology consulted. Recent diagnosis of non-small cell lung cancer. CT chest on admit here shows complete opacification of the left IV thorax due to a combination of pleural effusion and postobstructive pneumonitis/volume loss in the left lung. Empirically with IV vancomycin and Zosyn for postobstructive pneumonia. Sputum culture ordered. On home 2 L and requiring 4 L on admit here. Continue home inhalers and wean supplemental oxygen as able. 05/17: Discussed with the acrylic fabricator that given new cancer diagnosis with no chemotherapy or radiation initiated yet, will hold off bronchoscopy at this time. Plan for US guided thoracocentesis. Hold heparin drip. I talked to Dr. Meyers about patient's clinical condition and he thinks he does not have to see the patient in follow-up in the office. Dr. Meyers office note reviewed. 05/18: She is feeling better with regards to oxygenation. She wants to walk around. Continue PT and OT and oxygen monitoring while walking. Continue the above treatment. Patient had 240 mL cloudy dark yellow fluid drained from left pleural effusion. Cell count, chemistry, culture and pH was ordered 05/19: Thoracocentesis fluid shows 76% polynuclear, 24% mononuclear, glucose 259, TP 3.0, LDH 120 2500, overall cloudy suggestive of exudate. Fluid/serum protein is less than 0.5 probably she got diuretic. Pleural fluid culture shows 2+ WBC, no organisms seen. 05/20: Pleural fluid culture does not show any organism no growth for more than 48 hours. Patient is discharged on empiric Levaquin for 5 more days. Patient had 5 days of IV antibiotics while here, on Vanco Zosyn and then Vanco and ceftriaxone. Also discharged tapering dose of prednisone. Patient had inhaler. Advised follow-up with pulmonary clinic to get sleep study/PFT done. Follow-up with Dr. Velazco in 2 weeks 2. New onset A-fib with RVR probably cardiac irritation/lung cancer/respiratory failure/bronchodilator: Patient was normal sinus abdominal but went into A-fib RVR, heart rate 170/min. Patient reports episodes of palpitations similar to this over the past few weeks but she has no prior diagnosis of A-fib noted. Suspect new A-fib is related to cardiac irritation from lung cancer as above. Given IV Cardizem bolus with conversion back to normal sinus rhythm. On heparin drip on hold for thoracocentesis. Changed to Eliquis 5 mg p.o. twice daily. 2D echo shows EF 65% with mildly calcified aortic valve annulus and mitral valve annulus. DuoNeb changed to ipratropium nebulization. 05/19: Heart rate is controlled. 05/20: Heart rate is controlled on Cardizem 60 mg every 8 hourly. Cardizem CD 180 mg once daily. 3. Normocytic anemia ? Hemoglobin 9.3 on admit, MCV 80. Last hemoglobin in our system was 10.8 on 04/23. No active signs of bleeding noted. Iron studies with ferritin, B12 and folate ordered. Monitor daily CBC. 05/18: H&H 9.6/32%. Platelet count normal. 05/19: Iron workup shows serum iron low, TIBC low, iron supplement 14%, ferritin high therefore suggestive of anemia of chronic disease. 05/20: H&H 9.8/32.9% 4. Acute on chronic debility ? PT/OT/case management consulted. Patient lives at home alone and reports worsening weakness at home along with severe shortness of breath with exertion. Appreciate therapy recommendations. 5. Cancer related pain ? Follows with Dr. Meyers as above. Continue oxycodone?acetaminophen 1 tablet every 6 hours as needed. 6. Type 2 diabetes mellitus with diabetic neuropathy Glucose very high more than 500. Lantus insulin and Humalog insulin dose increased. Discussed with the nursing staff Continue home gabapentin. 05/18: Glucose is around 150-250. Better than yesterday. A1c ordered for tomorrow a.m. Lantus 40 units/mL twice daily. Lispro 25 units 3 times daily AC 05/19: Glucose 270. A1c 12.4%. 05/20: Patient sent home on Lantus insulin 30 tenosynovitis twice daily. On scheduled Humalog insulin 25 units 3 times daily. Follow with PCP 7. Anxiety/depression ? Stable. Continue home escitalopram, BuSpar as needed and mirtazapine at night. 8. Hypertension/hyperlipidemia ? Normotensive on admit here. However, given new onset A-fib as above we will hold home losartan for now. Continue home statin. Hypotonic isovolemic hyponatremia probably related to lung cancer/SIADH DVT prophylaxis: Not indicated, on heparin drip CODE STATUS: Full code, verified Discharge medication reconciliation done. Discharge follow-up instructions completed. Discharge process discussed with the patient and all questions were answered to patient's satisfaction. Follow with PCP in 1 to 2 weeks Total time spent, exact 35 minutes on discharge meds reconciliation, examination, coordination of care with nurses and ancillary staff, review of imaging and blood test and discussion with the patient on follow-up instructions. Clinical Impression(s) from Imaging Studies Chest CT 05/16/25 14:25 IMPRESSION: Coronary artery calcification (CAC) is is present Complete opacification of the left hemithorax due to a combination of pleural effusion and postobstructive pneumonitis/volume loss in the left lung. Narrowing of the left upper lobe and intermediate stem bronchus. Small right pleural effusion with right basilar infiltrate and interstitial changes in the right lung suggestive of lymphangitic spread. Multiple nodules seen in the right lung. Enlargement of the mediastinal lymph nodes. Reading Location: [facility] Echocardiogram 05/16/25 15:25 Interpretation Summary The LV ejection fraction is 65 %. Mild mitral annular calcification. Mildly calcified aortic valve annulus. Ordering Physician: Ion Staton Referring Physician: ROSANNA RAMOS Performed By: Laura Hawkins RDCS Chest X-Ray 05/17/25 14:55 IMPRESSION: Increasing interstitial and patchy airspace disease of the left lung field. No pneumothorax. Reading Location: [facility] Medications at Discharge Home Medications Supplemental Oxygen 2 l inhalation .continuous oxygen 04/16/25 escitalopram oxalate 20 mg tablet 20 mg PO QDAY mood 04/16/25 gabapentin 300 mg capsule 300 mg PO TID neuropathy 04/16/25 glimepiride 1 mg tablet 1 mg PO BID diabetes 04/16/25 losartan 50 mg tablet 50 mg PO QDAY blood pressure 04/16/25 mirtazapine 7.5 mg tablet 7.5 mg PO QDAY depression 04/16/25 pravastatin 40 mg tablet 40 mg PO QHS cholesterol 04/16/25 albuterol sulfate 90 mcg/actuation aerosol inhaler 2 puff inhalation Q4 PRN wheezing 04/23/25 buspirone 10 mg tablet 10 mg PO TID PRN anxiety 04/23/25 fluticasone furoate 200 mcg-vilanterol 25 mcg/dose inhalation powder 1 ea inhalation QDAY breathing 04/23/25 ipratropium 0.5 mg-albuterol 3 mg (2.5 mg base)/3 mL nebulization soln 3 ml inhalation Q4H PRN breathing 04/23/25 multivitamin 1 tab PO QAM supplement 04/23/25 ondansetron HCl 4 mg tablet 4 mg PO Q8H PRN nausea and vomiting 04/23/25 tiotropium bromide 18 mcg capsule with inhalation device (Spiriva with HandiHaler) 1 cap inhalation QDAY breathing 04/23/25 oxycodone-acetaminophen 5 mg-325 mg tablet (Percocet) 1 tab PO Q6H PRN pain 15 days #60 tabs 05/13/25 apixaban 5 mg tablet (Eliquis) 5 mg PO BID 30 days #60 tabs 05/20/25 diltiazem HCl 180 mg capsule,extended release 24 hr (Cardizem CD) 180 mg PO DAILY #30 caps 05/20/25 guaifenesin 1,200 mg tablet, extended release 12 hr (Mucus Relief ER) 1,200 mg PO BID 7 days #14 tabs 05/20/25 insulin glargine 100 unit/mL (3 mL) subcutaneous pen (Lantus Solostar U-100 Insulin) 32 unit (0.32 mL) subcut BID diabetes 30 days #15 mL 05/20/25 insulin lispro 100 unit/mL subcutaneous pen (Humalog KwikPen (U-100) Insulin) 25 unit (0.25 mL) subcut TIDAC 1 month #15 mL 05/20/25 insulin lispro 100 unit/mL subcutaneous pen (Humalog KwikPen (U-100) Insulin) See Protocol subcut ACHS #0 mL 05/20/25 levofloxacin 500 mg tablet 500 mg PO DAILY 5 days #5 tabs 05/20/25 prednisone 10 mg tablet 10 mg PO DAILY #30 tabs 05/20/25 Physical Exam Narrative Seen and examined She is feeling better. On 2-3 L of oxygen. Heart rate and blood pressure better. No fever Patient admitted with extreme hypoxia and shortness of breath. Left lung whiteout. Diagnosed with left lung cancer with left upper lobe collapse. TELLES and orthopnea has resolved. Physical exam General: Alert, Oriented x3, Cooperative. BMI 28.7 kg/m? HEENT: Atraumatic, PERRLA, EOMI, Normocephalic. Oral: Oral mucosa dry. No Gingival or Mucosal Lesions/ Ulcerations Neck: Supple, No JVD, Negative Carotid Bruits Chest wall/Lungs: Air entry improved on the left side after thoracocentesis. Bilateral lower lobes coarse rhonchi. Cardiovascular: Regular rate and rhythm, Normal S1,S2, systolic murmur. Abdomen: Bowel Sounds Present, Soft, Non Tender, Non-Distended : No dysuria. No renal angle tenderness. No suprapubic tenderness. Extremities: No edema, Capillary Refill Less than 3 Seconds Skin: No rashes, No breakdown Musculoskeletal: No Tenderness to Palpation of Joints or Extremities Neurological: Cranial nerves II-XII grossly intact, DTR 2+/4. No acute focal neurological deficit. Psych/Mental Status: Normal Affect, Appropriate. Weight / BMI Weight Weight: 182 lb 15.986 oz Body Mass Index (BMI) 28.6 ABG / Lab / Microbiology Data 05/20/25 08:27 05/19/25 04:14 Laboratory: Laboratory Results - last 24 hr 05/16/25 14:58: RBC Folate Hemolysate 363.0, RBC Folate 831, Hematocrit 43.7 05/19/25 12:02: POC Glucose 270 H 05/19/25 16:47: POC Glucose 253 H 05/19/25 21:37: POC Glucose 257 H 05/20/25 04:16: Vancomycin Trough 19.9 H 05/20/25 04:27: POC Glucose 92 05/20/25 08:27: WBC 26.0 H, RBC 4.09 L, Hgb 9.8 L, Hct 32.9 L, MCV 80.4 L, MCH 24.0 L, MCHC 29.8 L, RDW Std Deviation 48.9 H, RDW Coeff of Rene 16.6 H, Plt Count 461 H, MPV 9.3, Immature Gran % (Auto) 1.200 H, Neut % (Auto) 89.7 H, L ymph % (Auto) 3.7 L, [place] % (Auto) 5.2, Eos % (Auto) 0.0, Baso % (Auto) 0.2, A bsolute Neuts (auto) 23.3 H, Absolute Lymphs (auto) 0.97, Nucleated RBC % 0 Microbiology: Microbiology 05/17/25 14:19 Fluid - Thoracentesis Fluid Gram Stain - Final 05/17/25 14:19 Fluid - Thoracentesis Fluid Body Fluid Culture - Preliminary No growth-Final to follow 05/17/25 14:19 Fluid - Thoracentesis Fluid Anaerobic Culture - Preliminary No growth in 48 hours. 05/17/25 16:30 Mucosa - Nose Coronavirus COVID-19 PCR - Final 05/17/25 16:30 Mucosa - Nose Respiratory Panel (PCR) - Final 05/17/25 15:22 Nasal Secretion MRSA (PCR) - Final 05/17/25 15:52 Urine, Clean Catch Legionella Antigen - Final 05/17/25 15:52 Urine, Clean Catch Streptococcus pneumoniae Antigen (M - Final D/C Instructions Weight Bearing Status: Weight bearing as tolerated Call your doctor if you observe: Fever of 101 or Higher, Coldness, Increased Pain, Numbness or Tingling, Change in Color, Inability to urinate, Inability to have a bowel movement, Shortness of breath, Dizziness, Fainting spells, Swelling in the ankles, Chest pain, Prolonged hiccupping, Increased palpitations (irregular heartbeat) and Calf discomfort When: IN 2 WEEKS Discharge Plan Admission Admit Date/Time: 05/16/25 13:33 Primary Reason for Your Visit: Sepsis COPD exacerbation, left lung, NSCLC with collapse and effusion Attending Provider: Anup Damico Primary Care Provider: ROSANNA RAMOS Consulting Providers: Anup Damico; Sunny Scott; Zoltan Phelps; Woody Melgoza; Alan Ochoa; Yovany Del Rio; Mayur Torres; Franky Haddad; Linda Levine; Delon Mcfarlane; Isidoro Durbin; Surendra Kelley; Opal Betts; Murphy Heard; Deborah Frey; Jia,Mathieu; Jai Clark; Stone Fuentes; Yogi Rios; Evan Stinson; Taylor Trevino; Nico Smith; Geronimo Fair; Ren Toth; Ion Staton; Christiano Singh Discharge Orders/Prescriptions Prescriptions: New guaifenesin [Mucus Relief ER] 1,200 mg Tablet Extended Release 12hr 1,200 mg PO BID 7 Days Qty: 14 0RF Eliquis 5 mg Tablet 5 mg PO BID 30 Days Qty: 60 2RF insulin lispro [Humalog KwikPen Insulin] 100 unit/mL Insulin Pen 25 unit subcut TIDAC 30 Days Qty: 15 5RF Rx Instructions: Hold if glucose less than 130 mg/dl insulin lispro [Humalog KwikPen Insulin] 100 unit/mL Insulin Pen See Protocol subcut ACHS Qty: 0 0RF Protocol: 3. Sliding Scale Insulin Med Dosing Condition: 150-189 mg/dl = 1 unit Condition: 190-229 mg/dl = 2 units Condition: 230-269 mg/dl = 3 units Condition: 270-309 mg/dl = 4 units Condition: 310-349 mg/dl = 5 units Condition: 350-399 mg/dl = 6 units Condition: 400-449 mg/dl = 7 units Condition: Greater than 449 call physician Protocol Text: Suggested for: - Patients on Total Daily Insulin Dose of 37-55 units - Obese, infected, or steroid patients MEDIUM DOSING ALGORITHIM prednisone 10 mg tablet 10 mg PO DAILY Qty: 30 0RF Rx Instructions: 40 mg for 3 days 30 mg for 3 days, 20 mg for 3 days,and 10 mg for 3 days levofloxacin 500 mg tablet 500 mg PO DAILY 5 Days Qty: 5 0RF diltiazem HCl [Cardizem CD] 180 mg capsule,extended release 24hr 180 mg PO DAILY Qty: 30 3RF Continued escitalopram oxalate 20 mg tablet 20 mg PO QDAY gabapentin 300 mg capsule 300 mg PO TID glimepiride 1 mg tablet 1 mg PO BID losartan 50 mg tablet 50 mg PO QDAY mirtazapine 7.5 mg tablet 7.5 mg PO QDAY Supplemental Oxygen 2 l inhalation .continuous Patient Comments: Per patient oxygen was in the mid 80s on this Rx Instructions: 2L with rest and activity pravastatin 40 mg tablet 40 mg PO QHS albuterol sulfate 90 mcg/actuation HFA aerosol inhaler 2 puff inhalation Q4 PRN (Reason: wheezing) buspirone 10 mg tablet 10 mg PO TID PRN (Reason: anxiety) fluticasone furoate-vilanterol 200-25 mcg/dose blister with device 1 ea inhalation QDAY ipratropium-albuterol 0.5 mg-3 mg(2.5 mg base)/3 mL solution for nebulization 3 ml inhalation Q4H PRN (Reason: breathing) multivitamin Tablet 1 tab PO QAM ondansetron HCl 4 mg tablet 4 mg PO Q8H PRN (Reason: nausea and vomiting) tiotropium bromide [Spiriva with HandiHaler] 18 mcg capsule, w/inhalation device 1 cap inhalation QDAY oxycodone-acetaminophen [Percocet] 5-325 mg tablet 1 tab PO Q6H PRN (Reason: pain) 15 Days Qty: 60 0RF Changed insulin glargine [Lantus Solostar U-100 Insulin] 100 unit/mL (3 mL) insulin pen 32 unit subcut BID 30 Days Qty: 15 3RF Rx Instructions: Hold if glucose less than 130 mg/dl Discontinued aspirin [Adult Aspirin Regimen] 81 mg tablet,delayed release (DR/EC) 81 mg PO QDAY Patient Comments: Per patient she is not to be taking this for port placement amoxicillin-pot clavulanate [Augmentin] 500-125 mg tablet 1 tab PO BID insulin lispro 100 unit/mL insulin pen 10 unit subcut TID Referrals / Follow Up: Alan Ochoa DO [Med Staff - Active Staff] - Within 2 Weeks ROSANNA RAMOS MD [Primary Care Provider] - Scar Meyers MD [Med Staff - Active Staff] - Within 1 Week Disposition Disposition (needs filled in before D/C Order can be placed): Home, Self Care Charges/Coding Visit Charges Inpatient E&M: 98773 Disch Hosp >30min
--- NOTE | 2025-05-20 12:00 | CASEMGMT ---
Addendum entered by Jessica Arreaga 05/20/25 15:14: DEBBIE KEITH in to inquire about HHC preferences. Patient states her preferences are as followed: 1. [facility]. [facility] 3. [facility]. Patient had no further questions or concerns. DEBBIE KEITH updated discharge marketing planning manager. Original Note: DEBBIE KEITH in to discuss needs at discharge. Patient was able to ambulate 210 ft SBA. DEBBIE KEITH discuss HHC at discharge, HHC list provided. Patient agreeable to HHC. DEBBIE KEITH requested patient to review HHC list and provide 3 preferences. Patient voiced understanding. CM will continue to follow this patient and plan for a safe discharge.
--- NOTE | 2025-05-20 12:02 | CASEMGMT ---
Discharge Planning A list of HH providers including quality and resource use data and consistent with the patient's preferred geographic region, medical needs, and insurance network was created in [facility].? This list was provided to the RN SAGAR. Martha Hitchcock, Discharge Planning Asst.
--- NOTE | 2025-05-20 13:19 | PN.HOSP_ITS ---
Reason for Visit Chief Complaint: Worsen shortness of breath Objective Data Objective Data Vital Signs: Vital Signs Temp Pulse Resp BP Pulse Ox O2 Del Method O2 Flow Rate 97.9 F 67 20 H 158/79 H 96 Nasal Cannula 3 05/20/25 08:48 05/20/25 11:26 05/20/25 11:26 05/20/25 08:48 05/20/25 11:26 05/20/25 11:26 05/20/25 11:35 Oxygen Flow Rate (L/min) 3 Oxygen Delivery Method Nasal Cannula Weight: 182 lb 15.986 oz Body Mass Index (BMI) 28.6 Intake & Output: Intake and Output for Last 24 Hours 05/18/25 05/19/25 05/20/25 23:59 23:59 23:59 Intake Total 900 / 900 600 / 820 855 / 855 Balance 900 / 900 600 / 820 855 / 855 Lab / Micro Data 05/20/25 08:27 05/19/25 04:14 Labs: Laboratory Results - last 24 hr 05/16/25 14:58: RBC Folate Hemolysate 363.0, RBC Folate 831, Hematocrit 43.7 05/19/25 16:47: POC Glucose 253 H 05/19/25 21:37: POC Glucose 257 H 05/20/25 04:16: Vancomycin Trough 19.9 H 05/20/25 04:27: POC Glucose 92 05/20/25 08:27: WBC 26.0 H, RBC 4.09 L, Hgb 9.8 L, Hct 32.9 L, MCV 80.4 L, MCH 24.0 L, MCHC 29.8 L, RDW Std Deviation 48.9 H, RDW Coeff of Rene 16.6 H, Plt Count 461 H, MPV 9.3, Immature Gran % (Auto) 1.200 H, Neut % (Auto) 89.7 H, L ymph % (Auto) 3.7 L, Will[place] % (Auto) 5.2, Eos % (Auto) 0.0, Baso % (Auto) 0.2, A bsolute Neuts (auto) 23.3 H, Absolute Lymphs (auto) 0.97, Nucleated RBC % 0 05/20/25 11:50: POC Glucose 241 H Micro: Microbiology 05/17/25 14:19 Fluid - Thoracentesis Fluid Gram Stain - Final 05/17/25 14:19 Fluid - Thoracentesis Fluid Body Fluid Culture - Preliminary No growth-Final to follow 05/17/25 14:19 Fluid - Thoracentesis Fluid Anaerobic Culture - Preliminary No growth in 48 hours. 05/17/25 16:30 Mucosa - Nose Coronavirus COVID-19 PCR - Final 05/17/25 16:30 Mucosa - Nose Respiratory Panel (PCR) - Final 05/17/25 15:22 Nasal Secretion MRSA (PCR) - Final 05/17/25 15:52 Urine, Clean Catch Legionella Antigen - Final 05/17/25 15:52 Urine, Clean Catch Streptococcus pneumoniae Antigen (M - Final Physical Exam Narrative Seen and examined She is feeling better. On 2-3 L of oxygen. Heart rate and blood pressure better. No fever Although she has improved but still feels dyspnea on exertion and requested 1 more day for hospital stay Patient admitted with extreme hypoxia and shortness of breath. Left lung whiteout. Diagnosed with left lung cancer with left upper lobe collapse. Physical exam General: Alert, Oriented x3, Cooperative. BMI 28.7 kg/m? HEENT: Atraumatic, PERRLA, EOMI, Normocephalic. Oral: Oral mucosa dry. No Gingival or Mucosal Lesions/ Ulcerations Neck: Supple, No JVD, Negative Carotid Bruits Chest wall/Lungs: Air entry improved on the left side after thoracocentesis. Bilateral lower lobes coarse rhonchi. Cardiovascular: Regular rate and rhythm, Normal S1,S2, systolic murmur. Abdomen: Bowel Sounds Present, Soft, Non Tender, Non-Distended : No dysuria. No renal angle tenderness. No suprapubic tenderness. Extremities: No edema, Capillary Refill Less than 3 Seconds Skin: No rashes, No breakdown Musculoskeletal: No Tenderness to Palpation of Joints or Extremities Neurological: Cranial nerves II-XII grossly intact, DTR 2+/4. No acute focal neurological deficit. Psych/Mental Status: Normal Affect, Appropriate. Assessment & Plan Assessment/Plan (1) Pleural effusion, left: (2) Non-small cell lung cancer: QUALIFIERS: Laterality: left Qualified Code(s): C34.92 - Malignant neoplasm of unspecified part of left bronchus or lung PLAN: Plan Patient is a 59-year-old female who presented [facility] on 05[facility]16[facility] as a transfer from [facility] in [place] for worsening shortness of breath. 1. Acute hypoxia in setting of COPD exacerbation with chronic hypoxic respiratory failure due to non-small cell lung cancer with worsening left-sided opacities and left pleural effusion ? Admit under inpatient status to PCU. Pulmonology consulted. Recent diagnosis of non-small cell lung cancer. CT chest on admit here shows complete opacification of the left IV thorax due to a combination of pleural effusion and postobstructive pneumonitis/volume loss in the left lung. Empirically with IV vancomycin and Zosyn for postobstructive pneumonia. Sputum culture ordered. On home 2 L and requiring 4 L on admit here. Continue home inhalers and wean supplemental oxygen as able. 05/17: Discussed with the bridges supervisor that given new cancer diagnosis with no chemotherapy or radiation initiated yet, will hold off bronchoscopy at this time. Plan for US guided thoracocentesis. Hold heparin drip. I talked to Dr. Meyers about patient's clinical condition and he thinks he does not have to see the patient in follow-up in the office. Dr. Meyers office note reviewed. 05/18: She is feeling better with regards to oxygenation. She wants to walk around. Continue PT and OT and oxygen monitoring while walking. Continue the above treatment. Patient had 240 mL cloudy dark yellow fluid drained from left pleural effusion. Cell count, chemistry, culture and pH was ordered 05/19: Thoracocentesis fluid shows 76% polynuclear, 24% mononuclear, glucose 259, TP 3.0, LDH 120 2500, overall cloudy suggestive of exudate. Fluid/serum protein is less than 0.5 probably she got diuretic. Pleural fluid culture shows 2+ WBC, no organisms seen. 05/20: Pleural fluid culture does not show any organism no growth for more than 48 hours. Patient had 5 days of IV antibiotics while here, on Vanco Zosyn and then Vanco and ceftriaxone. Antibiotic levofloxacin 5 mg daily oral from tomorrow for total of 5 more days. IV Solu-Medrol changed to prednisone 40 mg daily. Patient had inhaler. Advised follow-up with pulmonary clinic to get sleep study/PFT done. Follow-up with Dr. Meyers in 2 weeks 2. New onset A-fib with RVR probably cardiac irritation/lung cancer/respiratory failure/bronchodilator: Patient was normal sinus abdominal but went into A-fib RVR, heart rate 170/min. Patient reports episodes of palpitations similar to this over the past few weeks but she has no prior diagnosis of A-fib noted. Suspect new A-fib is related to cardiac irritation from lung cancer as above. Given IV Cardizem bolus with conversion back to normal sinus rhythm. On heparin drip on hold for thoracocentesis. Changed to Eliquis 5 mg p.o. twice daily. 2D echo shows EF 65% with mildly calcified aortic valve annulus and mitral valve annulus. DuoNeb changed to ipratropium nebulization. 05/19: Heart rate is controlled. 05/20: Heart rate is controlled on Cardizem 60 mg every 8 hourly. Cardizem CD 180 mg once daily. 3. Normocytic anemia ? Hemoglobin 9.3 on admit, MCV 80. Last hemoglobin in our system was 10.8 on 04/23. No active signs of bleeding noted. Iron studies with ferritin, B12 and folate ordered. Monitor daily CBC. 05/18: H&H 9.6/32%. Platelet count normal. 05/19: Iron workup shows serum iron low, TIBC low, iron supplement 14%, ferritin high therefore suggestive of anemia of chronic disease. 05/20: H&H 9.8/32.9% 4. Acute on chronic debility ? PT/OT/case management consulted. Patient lives at home alone and reports worsening weakness at home along with severe shortness of breath with exertion. Appreciate therapy recommendations. 5. Cancer related pain ? Follows with Dr. Meyers as above. Continue oxycodone?acetaminophen 1 tablet every 6 hours as needed. 6. Type 2 diabetes mellitus with diabetic neuropathy Glucose very high more than 500. Lantus insulin and Humalog insulin dose increased. Discussed with the nursing staff Continue home gabapentin. 05/18: Glucose is around 150-250. Better than yesterday. A1c ordered for tomorrow a.m. Lantus 40 units/mL twice daily. Lispro 25 units 3 times daily AC 05/19: Glucose 270. A1c 12.4%. 05/20: Patient sent home on Lantus insulin 30 tenosynovitis twice daily. On scheduled Humalog insulin 25 units 3 times daily. Follow with PCP 7. Anxiety/depression ? Stable. Continue home escitalopram, BuSpar as needed and mirtazapine at night. 8. Hypertension/hyperlipidemia ? Normotensive on admit here. However, given new onset A-fib as above we will hold home losartan for now. Continue home statin. Hypotonic isovolemic hyponatremia probably related to lung cancer/SIADH DVT prophylaxis: Not indicated, on heparin drip CODE STATUS: Full code, verified Clinical Impression(s) from Imaging Studies Chest CT 05/16/25 14:25 IMPRESSION: Coronary artery calcification (CAC) is is present Complete opacification of the left hemithorax due to a combination of pleural effusion and postobstructive pneumonitis/volume loss in the left lung. Narrowing of the left upper lobe and intermediate stem bronchus. Small right pleural effusion with right basilar infiltrate and interstitial changes in the right lung suggestive of lymphangitic spread. Multiple nodules seen in the right lung. Enlargement of the mediastinal lymph nodes. Reading Location: [place] [address] Echocardiogram 05/16/25 15:25 Interpretation Summary The LV ejection fraction is 65 %. Mild mitral annular calcification. Mildly calcified aortic valve annulus. Ordering Physician: Ion Staton Referring Physician: ROSANNA RAMOS Performed By: Laura Hawkins RDCS Chest X-Ray 05/17/25 14:55 IMPRESSION: Increasing interstitial and patchy airspace disease of the left lung field. No pneumothorax. Reading Location: [facility] Charges/Coding Visit Charges Inpatient E&M: 14848 Subs Hosp L2
--- NOTE | 2025-05-20 15:18 | CASEMGMT ---
Addendum entered by Martha Hitchcock 05/20/25 16:19: Pt updated. Martha Hitchcock DC Planning Asst Addendum entered by Martha Hitchcock 05/20/25 15:43: [facility] and [facility] declined. [facility] accepted. DEBBIE KEITH accepted. Martha Hitchcock DC Planning Asst. Original Note: Discharge Planning HH referrals sent to [facility], [facility], and [facility]. Martha Hitchcock DC Planning Asst
--- NOTE | 2025-05-20 15:54 | CASEMGMT ---
DEBBIE KEITH received order for hospitalist for palliative consult. DEBBIE KEITH completed screening tool and referral sent to [facility] via email.
[2025-05-20 16:21] LABS: Pathologist Comment/Body Fluid Reviewed
[2025-05-20] MEDS: Insulin Glargine-YFGN 100 UNIT/ML Pen 40 UNIT SC (16:51)
[2025-05-21] VITALS (9 sets, daily range): BP systolic 149–158; BP diastolic 76–78; PULSE 69–82; RESP 16–20; TEMP 36.2–36.8; O2SAT 85–97
[2025-05-21] MEDS: Albuterol 2.5 MG/3 ML VIAL.NEB. INHALATION (02:53)
[2025-05-21] MEDS: Ipratropium 0.5 MG/2.5 ML SOLUTION INHALATION ×3 (02:53→10:37)
[2025-05-21] MEDS: Budesonide Respules 0.5 MG/2 ML AMPUL.NEB. INHALATION (06:59)
--- NOTE | 2025-05-21 09:29 | CASEMGMT ---
Discharge Planning Updates orders to include SW sent to [facility]. Martha Hitchcock DC Planning Asst.
[2025-05-21] MEDS: APIXABAN 5 MG TABLET PO (09:30)
[2025-05-21 09:40] LABS: Hematocrit 37.8 % (37-47); Hemoglobin 11.1 g/dL (12.0-15.0); Immature Granulocytes Count 0.360 X10^3/uL (0.0-0.0); Mean Corp Hgb Conc 29.4 g/dL (32-36); Mean Corpuscular Volume 81.5 fL (81-99); Mean Platelet Vol. 9.3 fl (6.2-12.0); NRBC Flagged by Analyzer 0 % (0-5); POSITIVE DIFFERENTIAL YES; Platelet Count 521 K/mm3 (150-450); RBC Distribution Width CV 17.0 % (11.6-14.6); RBC Distribution Width SD 49.7 fl (35.1-43.9); Red Blood Count 4.64 M/mm3 (4.2-5.4); White Blood Count 27.0 K/mm3 (4.4-11.0)
[2025-05-21] MEDS: Insulin Glargine-YFGN 100 UNIT/ML Pen 40 UNIT SC (09:40)
[2025-05-21 09:41] LABS: Differential Indicated SCAN CRITERIA MET
[2025-05-21 09:59] LABS: Differential Comment SCANNED
[2025-05-21 10:16] LABS: Anion Gap 12 (5-15); BUN 19 mg/dL (4-19); BUN/Creat Ratio 25.5 RATIO (10-20); Calcium,Total 8.7 mg/dL (7.6-11.0); Carbon Dioxide 34.0 mmol/L (21.0-32.0); Chloride 96 mmol/L (98-108); Estimated Creatinine Clearance 88.43 ml/min (50-250); Glucose 154 mg/dL (70-99); Potassium 3.7 mmol/L (3.3-5.1)
--- NOTE | 2025-05-21 11:27 | DCINST_ITS ---
Discharge Instructions DC O2, CPAP, BIPAP needs Home O2 Discharge instructions: No Dressing / Incision Discharge Activity: Return to Normal Activity Dressing / Incision Call your doctor if you observe: Fever of 101 or Higher, Shortness of breath, Dizziness, Fainting spells, Swelling in the ankles, Chest pain and Increased palpitations (irregular heartbeat) Follow Up Care Test Results: Test results from this visit will be discussed in further detail at your follow- up appointment, if applicable. Discharge Plan Admission Admit Date/Time: 05/16/25 13:33 Primary Reason for Your Visit: Sepsis COPD exacerbation, left lung, NSCLC with collapse and effusion Attending Provider: Fei Gaona Primary Care Provider: ROSANNA RAMOS Consulting Providers: Anup Damico; Sunny Scott; Zoltan Phelps; Woody Melgoza; Alan Ochoa; Yovany Del Rio; Mayur Torres; Franky Haddad; Linda Levine; Delon Mcfarlane; Isidoro Durbin; Surendra Kelley; Opal Betts; Murphy Heard; Deborah Frey; Jia,Mathieu; Jai Clark; Stoen Fuentes; Yogi Rios; Evan Stinson; Taylor Trevino; Nico Smith; Geronimo Fair; Ren Toth; Ion Staton; Christiano Singh Discharge Orders/Prescriptions Prescriptions: New guaifenesin [Mucus Relief ER] 1,200 mg Tablet Extended Release 12hr 1,200 mg PO BID 7 Days Qty: 14 0RF Eliquis 5 mg Tablet 5 mg PO BID 30 Days Qty: 60 2RF insulin lispro [Humalog KwikPen Insulin] 100 unit/mL Insulin Pen 25 unit subcut TIDAC 30 Days Qty: 15 5RF Rx Instructions: Hold if glucose less than 130 mg/dl insulin lispro [Humalog KwikPen Insulin] 100 unit/mL Insulin Pen See Protocol subcut ACHS Qty: 0 0RF Protocol: 3. Sliding Scale Insulin Med Dosing Condition: 150-189 mg/dl = 1 unit Condition: 190-229 mg/dl = 2 units Condition: 230-269 mg/dl = 3 units Condition: 270-309 mg/dl = 4 units Condition: 310-349 mg/dl = 5 units Condition: 350-399 mg/dl = 6 units Condition: 400-449 mg/dl = 7 units Condition: Greater than 449 call physician Protocol Text: Suggested for: - Patients on Total Daily Insulin Dose of 37-55 units - Obese, infected, or steroid patients MEDIUM DOSING ALGORITHIM prednisone 10 mg tablet 10 mg PO DAILY Qty: 30 0RF Rx Instructions: 40 mg for 3 days 30 mg for 3 days, 20 mg for 3 days,and 10 mg for 3 days levofloxacin 500 mg tablet 500 mg PO DAILY 5 Days Qty: 5 0RF diltiazem HCl [Cardizem CD] 180 mg capsule,extended release 24hr 180 mg PO DAILY Qty: 30 3RF Continued escitalopram oxalate 20 mg tablet 20 mg PO QDAY gabapentin 300 mg capsule 300 mg PO TID glimepiride 1 mg tablet 1 mg PO BID losartan 50 mg tablet 50 mg PO QDAY mirtazapine 7.5 mg tablet 7.5 mg PO QDAY Supplemental Oxygen 2 l inhalation .continuous Patient Comments: Per patient oxygen was in the mid 80s on this Rx Instructions: 2L with rest and activity pravastatin 40 mg tablet 40 mg PO QHS albuterol sulfate 90 mcg/actuation HFA aerosol inhaler 2 puff inhalation Q4 PRN (Reason: wheezing) buspirone 10 mg tablet 10 mg PO TID PRN (Reason: anxiety) fluticasone furoate-vilanterol 200-25 mcg/dose blister with device 1 ea inhalation QDAY ipratropium-albuterol 0.5 mg-3 mg(2.5 mg base)/3 mL solution for nebulization 3 ml inhalation Q4H PRN (Reason: breathing) multivitamin Tablet 1 tab PO QAM ondansetron HCl 4 mg tablet 4 mg PO Q8H PRN (Reason: nausea and vomiting) tiotropium bromide [Spiriva with HandiHaler] 18 mcg capsule, w/inhalation device 1 cap inhalation QDAY oxycodone-acetaminophen [Percocet] 5-325 mg tablet 1 tab PO Q6H PRN (Reason: pain) 15 Days Qty: 60 0RF Changed insulin glargine [Lantus Solostar U-100 Insulin] 100 unit/mL (3 mL) insulin pen 32 unit subcut BID 30 Days Qty: 15 3RF Rx Instructions: Hold if glucose less than 130 mg/dl Discontinued aspirin [Adult Aspirin Regimen] 81 mg tablet,delayed release (DR/EC) 81 mg PO QDAY Patient Comments: Per patient she is not to be taking this for port placement amoxicillin-pot clavulanate [Augmentin] 500-125 mg tablet 1 tab PO BID insulin lispro 100 unit/mL insulin pen 10 unit subcut TID Referrals / Follow Up: Alan Ochoa DO [Med Staff - Active Staff] - Within 2 Weeks ROSANNA RAMOS MD [Primary Care Provider] - Within 1 Week Scar Meyers MD [Med Staff - Active Staff] - Within 1 Week Disposition Disposition (needs filled in before D/C Order can be placed): Home Health Service
--- NOTE | 2025-05-21 12:05 | CASEMGMT ---
Patient has order for discharge. Patient requires increase in home oxygen, script received. RN SAGAR in to discuss needs at discharge. Patient updated that [facility] has accepted patient. Patient states she has oxygen tank for at discharge. Patient states she will need walker at discharge and prefers [employer]. RN SAGAR reviewed initial assessment and patient stated she would like glucometer and shower chair at discharge, patient states she would still need those items. Patient denied further needs or concerns at discharge. DEBBIE KEITH updated hospitalist, scripts received for glucometer, shower chair, and walker. RN SAGAR sent referral to [employer] via [facility] with request to deliver walker to patient's room. RN CM placed glucometer and shower chair scripts in discharge packet. RN SAGAR updated discharge plan.
--- NOTE | 2025-05-21 12:29 | CASEMGMT ---
Discharge Planning DC instructions sent to [facility]. SOC will be within 24-48hrs. Martha Hitchcock, JEFF Planning Asst.
--- NOTE | 2025-05-21 15:02 | PHA.DC_ITS ---
Pharmacy [facility] Counseling Pharmacy Service has performed discharge medication reconciliation and counseling for this patient. 1. APIXABAN 5MG PO BID 2. DILTIAZEM CD 180MG PO DAILY 3. GUAIFENESIN 1200MG PO BID 4. LEVOFLOXACIN 500MG PO DAILY X 5 DAYS 5. PREDNISONE 40MG PO BREAKFAST X 3 DAYS, THEN 30MG DAILY X 3 DAYS, THEN 20MG DAILY X 3 DAYS, THEN 10MG DAILY X 3 DAYS 6. STOP ASPIRIN AND AUGMENTIN 7. LANTUS CHANGED TO 32 UNITS SC BID AND HUMALOG 25UNITS SC TID AND SLIDING SCALE The patient's discharge medication list was reviewed for discrepancies and discrepancies were resolved. The patient was counseled on the following discharge medications and changes in medications for homegoing were reviewed. The Reason for Use, instructions for use, and potential side effects were reviewed for all new medications. The patient's questions regarding all of their medications were answered. The patient was able to verbally demonstrate an understanding of their discharge medications. Medications at Discharge Home Medications Supplemental Oxygen 2 l inhalation .continuous oxygen 04/16/25 escitalopram oxalate 20 mg tablet 20 mg PO QDAY mood 04/16/25 gabapentin 300 mg capsule 300 mg PO TID neuropathy 04/16/25 glimepiride 1 mg tablet 1 mg PO BID diabetes 04/16/25 losartan 50 mg tablet 50 mg PO QDAY blood pressure 04/16/25 mirtazapine 7.5 mg tablet 7.5 mg PO QDAY depression 04/16/25 pravastatin 40 mg tablet 40 mg PO QHS cholesterol 04/16/25 albuterol sulfate 90 mcg/actuation aerosol inhaler 2 puff inhalation Q4 PRN wheezing 04/23/25 buspirone 10 mg tablet 10 mg PO TID PRN anxiety 04/23/25 fluticasone furoate 200 mcg-vilanterol 25 mcg/dose inhalation powder 1 ea inhalation QDAY breathing 04/23/25 ipratropium 0.5 mg-albuterol 3 mg (2.5 mg base)/3 mL nebulization soln 3 ml inhalation Q4H PRN breathing 04/23/25 multivitamin 1 tab PO QAM supplement 04/23/25 ondansetron HCl 4 mg tablet 4 mg PO Q8H PRN nausea and vomiting 04/23/25 tiotropium bromide 18 mcg capsule with inhalation device (Spiriva with HandiHaler) 1 cap inhalation QDAY breathing 04/23/25 oxycodone-acetaminophen 5 mg-325 mg tablet (Percocet) 1 tab PO Q6H PRN pain 15 days #60 tabs 05/13/25 apixaban 5 mg tablet (Eliquis) 5 mg PO BID 30 days #60 tabs 05/20/25 diltiazem HCl 180 mg capsule,extended release 24 hr (Cardizem CD) 180 mg PO DAILY #30 caps 05/20/25 guaifenesin 1,200 mg tablet, extended release 12 hr (Mucus Relief ER) 1,200 mg PO BID 7 days #14 tabs 05/20/25 insulin lispro 100 unit/mL subcutaneous pen (Humalog KwikPen (U-100) Insulin) See Protocol subcut ACHS #0 mL 05/20/25 levofloxacin 500 mg tablet 500 mg PO DAILY 5 days #5 tabs 05/20/25 prednisone 10 mg tablet 10 mg PO DAILY #30 tabs 05/20/25 insulin glargine 100 unit/mL (3 mL) subcutaneous pen (Lantus Solostar U-100 Insulin) 30 unit (0.3 mL) subcut QPM #15 mL 05/21/25 insulin lispro 100 unit/mL subcutaneous pen (Humalog KwikPen (U-100) Insulin) 10 unit (0.1 mL) subcut TID #15 mL 05/21/25
--- NOTE | 2025-05-21 17:24 | PCM.DC.SUM ---
Providers Date of Admission: 05/16/25 Primary Care Physician: ROSANNA RAMOS MD Consultations 05/16/25 14:44 Consult: Color Depositing Machine Tender / Pulmonary Medicine Routine Consulting Provider: Intensivists/Pulmonary Med Reason for Consult: lung ca w/ L lung whiteout EMERGENT Consult: No Notified: Yes Date Notified: 05/16/25 Time Notified: 14:49 Method of Notification: Text 05/18/25 07:37 Consult: Infectious Disease Routine Consulting Provider: Christiano Singh Reason for Consult: [facility] in clusters on 05/16, Left pneumonia, NSCLC, L lung white out EMERGENT Consult: No Notified: Yes Date Notified: 05/18/25 Time Notified: 07:37 Method of Notification: Text Reason For Visit: PNEUMONIA/CANCER Diagnosis Discharge Diagnosis (1) Pleural effusion, left: Status: Inactive Code(s): J90 - Pleural effusion, not elsewhere classified (2) Non-small cell lung cancer: Status: Inactive Code(s): C34.90 - Malignant neoplasm of unspecified part of unspecified bronchus or lung Qualifiers: Laterality: left Qualified Code(s): C34.92 - Malignant neoplasm of unspecified part of left bronchus or lung Medications at Discharge Home Medications Supplemental Oxygen 2 l inhalation .continuous oxygen 04/16/25 escitalopram oxalate 20 mg tablet 20 mg PO QDAY mood 04/16/25 gabapentin 300 mg capsule 300 mg PO TID neuropathy 04/16/25 glimepiride 1 mg tablet 1 mg PO BID diabetes 04/16/25 losartan 50 mg tablet 50 mg PO QDAY blood pressure 04/16/25 mirtazapine 7.5 mg tablet 7.5 mg PO QDAY depression 04/16/25 pravastatin 40 mg tablet 40 mg PO QHS cholesterol 04/16/25 albuterol sulfate 90 mcg/actuation aerosol inhaler 2 puff inhalation Q4 PRN wheezing 04/23/25 buspirone 10 mg tablet 10 mg PO TID PRN anxiety 04/23/25 fluticasone furoate 200 mcg-vilanterol 25 mcg/dose inhalation powder 1 ea inhalation QDAY breathing 04/23/25 ipratropium 0.5 mg-albuterol 3 mg (2.5 mg base)/3 mL nebulization soln 3 ml inhalation Q4H PRN breathing 06/24/25 multivitamin 1 tab PO QAM supplement 04/23/25 ondansetron HCl 4 mg tablet 4 mg PO Q8H PRN nausea and vomiting 04/23/25 tiotropium bromide 18 mcg capsule with inhalation device (Spiriva with HandiHaler) 1 cap inhalation QDAY breathing 04/23/25 oxycodone-acetaminophen 5 mg-325 mg tablet (Percocet) 1 tab PO Q6H PRN pain 15 days #60 tabs 05/13/25 apixaban 5 mg tablet (Eliquis) 5 mg PO BID 30 days #60 tabs 05/20/25 diltiazem HCl 180 mg capsule,extended release 24 hr (Cardizem CD) 180 mg PO DAILY #30 caps 05/20/25 guaifenesin 1,200 mg tablet, extended release 12 hr (Mucus Relief ER) 1,200 mg PO BID 7 days #14 tabs 05/20/25 insulin lispro 100 unit/mL subcutaneous pen (Humalog KwikPen (U-100) Insulin) See Protocol subcut ACHS #0 mL 05/20/25 levofloxacin 500 mg tablet 500 mg PO DAILY 5 days #5 tabs 05/20/25 prednisone 10 mg tablet 10 mg PO DAILY #30 tabs 05/20/25 insulin glargine 100 unit/mL (3 mL) subcutaneous pen (Lantus Solostar U-100 Insulin) 30 unit (0.3 mL) subcut QPM #15 mL 05/21/25 insulin lispro 100 unit/mL subcutaneous pen (Humalog KwikPen (U-100) Insulin) 10 unit (0.1 mL) subcut TID #15 mL 05/21/25 Hospital Course Operations None Procedures 2-D Echocardiogram and Thoracentesis Summary of Care Provided Minutes Spent on Discharge: 34 Hospital Course: Per HPI: GET BANKS, is a 59 F who presented to [facility] on 05/16/2025 as a transfer from [place] for worsening shortness of breath. Patient was recently diagnosed with non-small cell lung cancer and saw Dr. Meyers in the office here on 05/13. She lives in [place] and she initially was hospitalized there in February with shortness of breath and found to have a left upper lobe mass. Underwent bronchoscopy with biopsy there that showed 40 differentiated malignant epithelioid neoplasm favoring non-small cell carcinoma. She established with oncology here and the plan is for port placement next week on 05/21 and then initiation of chemotherapy with Nivo/Ipi/Taxol/Carboplatin. On review of [facility] records, patient was hospitalized in [place] from 04/30-05/03 for shortness of breath and weakness. Chest x-ray then showed known left upper lobe masslike infiltrates with new interstitial markings concerning for pneumonia versus pneumonitis. She was treated for COPD exacerbation and pneumonia there with good improvement and she was discharged home on 2 L of oxygen. She has now noticed worsening shortness of breath with exertion especially over the past few days and she went to the [facility] ED for this. Chest x-ray report there noted complete opacification of the left hemithorax with shift of the mediastinal structures to the left with suspected atelectasis versus left-sided pleural effusion. She was given a dose of IV antibiotics for concern for postobstructive pneumonia and then transferred here for further evaluation. I saw the patient shortly after she arrived here. She was breathing comfortably on 4 L nasal cannula with saturations in the mid 90s. She denied any shortness of breath at rest but did note significant shortness of breath with minimal exertion. Denies cough or sputum production. Denies any fevers or chills. She has had pain associated with her cancer primarily in her left lower chest area underneath the breast and at that level in the left back as well. She has been on Percocet every 6 hours as needed for this with moderate relief of pain. She denies any other acute concerns currently. Hospital Course: 1. Acute hypoxia in setting of COPD exacerbation with chronic hypoxic respiratory failure due to non-small cell lung cancer with worsening left-sided opacities and left pleural effusion ? Admit under inpatient status to PCU. Pulmonology consulted. Recent diagnosis of non-small cell lung cancer. CT chest on admit here shows complete opacification of the left IV thorax due to a combination of pleural effusion and postobstructive pneumonitis/volume loss in the left lung. Empirically with IV vancomycin and Zosyn for postobstructive pneumonia. Sputum culture ordered. On home 2 L and requiring 4 L on admit here. Continue home inhalers and wean supplemental oxygen as able. 05/17: Discussed with the mig welder that given new cancer diagnosis with no chemotherapy or radiation initiated yet, will hold off bronchoscopy at this time. Plan for US guided thoracocentesis. Hold heparin drip. I talked to Dr. Meyers about patient's clinical condition and he thinks he does not have to see the patient in follow-up in the office. Dr. Meeyrs office note reviewed. 05/18: She is feeling better with regards to oxygenation. She wants to walk around. Continue PT and OT and oxygen monitoring while walking. Continue the above treatment. Patient had 240 mL cloudy dark yellow fluid drained from left pleural effusion. Cell count, chemistry, culture and pH was ordered 05/19: Thoracocentesis fluid shows 76% polynuclear, 24% mononuclear, glucose 259, TP 3.0, LDH 120 2500, overall cloudy suggestive of exudate. Fluid/serum protein is less than 0.5 probably she got diuretic. Pleural fluid culture shows 2+ WBC, no organisms seen. 05/20: Pleural fluid culture does not show any organism no growth for more than 48 hours. Patient had 5 days of IV antibiotics while here, on Vanco Zosyn and then Vanco and ceftriaxone. Antibiotic levofloxacin 5 mg daily oral from tomorrow for total of 5 more days. IV Solu-Medrol changed to prednisone 40 mg daily. Patient had inhaler. Advised follow-up with pulmonary clinic to get sleep study/PFT done. Follow-up with Dr. Meyers in 2 weeks 05/21/2025: Will continue with outpatient follow-up with oncology pending any pathology on left thoracentesis fluid. She is breathing better on 2 to 3 L nasal cannula at rest and 3 to 4 L nasal cannula with activity. This was discussed with her and she expressed understanding. She was set to be discharged yesterday but did not feel comfortable going home so I discussed with her how she felt about going home today and she felt that she could manage it. She expressed understanding of the risks and benefits of going home and would still like to go home today. I discussed with her that she could stay though most of what we were doing today could be done at home. She does have home health care set up on discharge. She will continue with a steroid taper on discharge as well which is likely accounting for her white blood cell count being so elevated. 2. New onset A-fib with RVR probably cardiac irritation/lung cancer/respiratory failure/bronchodilator: Patient was normal sinus abdominal but went into A-fib RVR, heart rate 170/min. Patient reports episodes of palpitations similar to this over the past few weeks but she has no prior diagnosis of A-fib noted. Suspect new A-fib is related to cardiac irritation from lung cancer as above. Given IV Cardizem bolus with conversion back to normal sinus rhythm. On heparin drip on hold for thoracocentesis. Changed to Eliquis 5 mg p.o. twice daily. 2D echo shows EF 65% with mildly calcified aortic valve annulus and mitral valve annulus. DuoNeb changed to ipratropium nebulization. 05/19: Heart rate is controlled. 05/20: Heart rate is controlled on Cardizem 60 mg every 8 hourly. Cardizem CD 180 mg once daily. 05/21/2025: Heart rate is back to normal and she does appear to be in sinus rhythm. She was transition to Eliquis for her A-fib and Cardizem 180 mg p.o. daily. I recommend outpatient follow-up with potential cardiology evaluation as an outpatient. 3. Normocytic anemia ? Hemoglobin 9.3 on admit, MCV 80. Last hemoglobin in our system was 10.8 on 04/23. No active signs of bleeding noted. Iron studies with ferritin, B12 and folate ordered. Monitor daily CBC. 05/18: H&H 9.6/32%. Platelet count normal. 05/19: Iron workup shows serum iron low, TIBC low, iron supplement 14%, ferritin high therefore suggestive of anemia of chronic disease. 05/20: H&H 9.8/32.9% 05/21/2025: Hemoglobin is 11.1 on discharge 4. Acute on chronic debility ? PT/OT/case management consulted. Patient lives at home alone and reports worsening weakness at home along with severe shortness of breath with exertion. Appreciate therapy recommendations. 5. Cancer related pain ? Follows with Dr. Meyers as above. Continue oxycodone?acetaminophen 1 tablet every 6 hours as needed. 6. Type 2 diabetes mellitus with diabetic neuropathy Glucose very high more than 500. Lantus insulin and Humalog insulin dose increased. Discussed with the nursing staff Continue home gabapentin. 05/18: Glucose is around 150-250. Better than yesterday. A1c ordered for tomorrow a.m. Lantus 40 units/mL twice daily. Lispro 25 units 3 times daily AC 05/19: Glucose 270. A1c 12.4%. 7/21: Patient sent home on Lantus insulin 30 tenosynovitis twice daily. On scheduled Humalog insulin 25 units 3 times daily. Follow with PCP 05/21/2025: Blood sugars were low so I did adjust her home discharge medications with her Lantus at 30 units nightly, her mealtime insulin is staying at 10 units 3 times a day and will allow for the sliding scale insulin that was previously placed on her MAR, as she will be on steroids though they will be tapered on discharge 7. Anxiety/depression ? Stable. Continue home escitalopram, BuSpar as needed and mirtazapine at night. 8. Hypertension/hyperlipidemia ? Normotensive on admit here. However, given new onset A-fib as above we will hold home losartan for now. Continue home statin. Hypotonic isovolemic hyponatremia probably related to lung cancer/SIADH?resolved Physical Exam Narrative General: Alert, Oriented x3, Cooperative, No apparent distress HEENT: Atraumatic, PERRLA, EOMI, Normocephalic Oral: Moist Mucosa Neck: Supple, No JVD Lungs: Diminished, Normal air movement, scattered rhonchi, No wheeze, No rales Cardiovascular: Regular rate, Regular Rhythm, Normal S1, Normal S2, No murmurs Abdomen: Soft, Non Tender, Non-Distended, No Hepato-splenomegaly Extremities: No edema, Capillary Refill Less than 3 Seconds Skin: No rashes, No breakdown Musculoskeletal: No Tenderness to Palpation of Joints or Extremities Neurological: No focal neurological deficits, Motor Exam 5/5 strength throughout, Sensory exam intact to light touch and pain Psych/Mental Status: Normal Affect, Appropriate Weight / BMI Weight Weight: 182 lb 15.986 oz Body Mass Index (BMI) 28.6 ABG / Lab / Microbiology Data 05/21/25 09:30 05/21/25 09:30 Laboratory: Laboratory Results - last 24 hr 05/20/25 21:42: POC Glucose 173 H 05/21/25 06:37: POC Glucose 68 L 05/21/25 06:56: POC Glucose 91 05/21/25 09:30: WBC 27.0 H, RBC 4.64, Hgb 11.1 L, Hct 37.8, MCV 81.5, MCH 23.9 L, MCHC 29.4 L, RDW Std Deviation 49.7 H, RDW Coeff of Rene 17.0 H, Plt Count 521 H, MPV 9.3, Immature Gran % (Auto) 1.300 H, Neut % (Auto) 88.5 H, Lymph % (Auto) 4.6 L, Dodge % (Auto) 5.4, Eos % (Auto) 0.0, Baso % (Auto) 0.2, Absolute Neuts (auto) 23.9 H, Absolute Lymphs (auto) 1.24, Nucleated RBC % 0, Differential Comment SCANNED, Sodium 142, Potassium 3.7, Chloride 96 L, Carbon Dioxide 34.0 H, Anion Gap 12, BUN 19, Creatinine 0.74, Estim Creat Clear Calc 88.43, Est GFR (MDRD) Non-Af 93, BUN/Creatinine Ratio 25.5 H, Glucose 154 H, Calcium 8.7 05/21/25 11:29: POC Glucose 161 H 05/21/25 13:58: POC Glucose 51 L 05/21/25 14:26: POC Glucose 113 H Microbiology: Microbiology 05/17/25 14:19 Fluid - Thoracentesis Fluid Gram Stain - Final 05/17/25 14:19 Fluid - Thoracentesis Fluid Body Fluid Culture - Preliminary No growth-Final to follow 05/17/25 14:19 Fluid - Thoracentesis Fluid Anaerobic Culture - Preliminary No growth in 48 hours. 05/17/25 16:30 Mucosa - Nose Coronavirus COVID-19 PCR - Final 05/17/25 16:30 Mucosa - Nose Respiratory Panel (PCR) - Final 05/17/25 15:22 Nasal Secretion MRSA (PCR) - Final 05/17/25 15:52 Urine, Clean Catch Legionella Antigen - Final 05/17/25 15:52 Urine, Clean Catch Streptococcus pneumoniae Antigen (M - Final D/C Instructions Call your doctor if you observe: Fever of 101 or Higher, Shortness of breath, Dizziness, Fainting spells, Swelling in the ankles, Chest pain and Increased palpitations (irregular heartbeat) DC O2, CPAP, BIPAP Needs Home O2 Discharge instructions: No Meaningful Use Info Meaningful Use Meaningful Use Diagnoses (Choose all that apply): None applicable Discharge Plan Admission Admit Date/Time: 05/16/25 13:33 Primary Reason for Your Visit: Sepsis COPD exacerbation, left lung, NSCLC with collapse and effusion Attending Provider: Fei Gaona Primary Care Provider: ROSANNA RAMOS Consulting Providers: Anup Damico; Sunny Scott; Zoltan Phelps; Woody Melgoza; Alan Ochoa; Yovany Del Rio; Mayur Torres; Franky Haddad; Linda Levine; Delon Mcfarlane; Isidoro Durbin; Surendra Kelley; Opal Betts; Murphy Heard; Deborah Frey; Mathieu Ro; Jai Clark; Stone Fuentes; Yogi Rios; Evan Stinson; Taylor Trevino; Nico Smith; Geronimo Fair; Ren Toth; Ion Staton; Christiano Singh Discharge Orders/Prescriptions Prescriptions: New guaifenesin [Mucus Relief ER] 1,200 mg Tablet Extended Release 12hr 1,200 mg PO BID 7 Days Qty: 14 0RF Eliquis 5 mg Tablet 5 mg PO BID 30 Days Qty: 60 2RF insulin lispro [Humalog KwikPen Insulin] 100 unit/mL Insulin Pen See Protocol subcut ACHS Qty: 0 0RF Protocol: 3. Sliding Scale Insulin Med Dosing Condition: 150-189 mg/dl = 1 unit Condition: 190-229 mg/dl = 2 units Condition: 230-269 mg/dl = 3 units Condition: 270-309 mg/dl = 4 units Condition: 310-349 mg/dl = 5 units Condition: 350-399 mg/dl = 6 units Condition: 400-449 mg/dl = 7 units Condition: Greater than 449 call physician Protocol Text: Suggested for: - Patients on Total Daily Insulin Dose of 37-55 units - Obese, infected, or steroid patients MEDIUM DOSING ALGORITHIM prednisone 10 mg tablet 10 mg PO DAILY Qty: 30 0RF Rx Instructions: 40 mg for 3 days 30 mg for 3 days, 20 mg for 3 days,and 10 mg for 3 days levofloxacin 500 mg tablet 500 mg PO DAILY 5 Days Qty: 5 0RF diltiazem HCl [Cardizem CD] 180 mg capsule,extended release 24hr 180 mg PO DAILY Qty: 30 3RF insulin lispro [Humalog KwikPen Insulin] 100 unit/mL insulin pen 10 unit subcut TID Qty: 15 0RF insulin glargine [Lantus Solostar U-100 Insulin] 100 unit/mL (3 mL) insulin pen 30 unit subcut QPM Qty: 15 0RF Continued escitalopram oxalate 20 mg tablet 20 mg PO QDAY gabapentin 300 mg capsule 300 mg PO TID glimepiride 1 mg tablet 1 mg PO BID losartan 50 mg tablet 50 mg PO QDAY mirtazapine 7.5 mg tablet 7.5 mg PO QDAY Supplemental Oxygen 2 l inhalation .continuous Patient Comments: Per patient oxygen was in the mid 80s on this Rx Instructions: 2L with rest and activity pravastatin 40 mg tablet 40 mg PO QHS albuterol sulfate 90 mcg/actuation HFA aerosol inhaler 2 puff inhalation Q4 PRN (Reason: wheezing) buspirone 10 mg tablet 10 mg PO TID PRN (Reason: anxiety) fluticasone furoate-vilanterol 200-25 mcg/dose blister with device 1 ea inhalation QDAY ipratropium-albuterol 0.5 mg-3 mg(2.5 mg base)/3 mL solution for nebulization 3 ml inhalation Q4H PRN (Reason: breathing) multivitamin Tablet 1 tab PO QAM ondansetron HCl 4 mg tablet 4 mg PO Q8H PRN (Reason: nausea and vomiting) tiotropium bromide [Spiriva with HandiHaler] 18 mcg capsule, w/inhalation device 1 cap inhalation QDAY oxycodone-acetaminophen [Percocet] 5-325 mg tablet 1 tab PO Q6H PRN (Reason: pain) 15 Days Qty: 60 0RF Discontinued aspirin [Adult Aspirin Regimen] 81 mg tablet,delayed release (DR/EC) 81 mg PO QDAY Patient Comments: Per patient she is not to be taking this for port placement insulin glargine [Lantus Solostar U-100 Insulin] 100 unit/mL (3 mL) insulin pen 40 unit subcut QHS amoxicillin-pot clavulanate [Augmentin] 500-125 mg tablet 1 tab PO BID insulin lispro 100 unit/mL insulin pen 10 unit subcut TID Referrals / Follow Up: Alan Ochoa DO [Med Staff - Active Staff] - Within 2 Weeks ROSANNA RAMOS MD [Primary Care Provider] - Within 1 Week Scar Meyers MD [Med Staff - Active Staff] - Within 1 Week Disposition Disposition (needs filled in before D/C Order can be placed): Home Health Service Charges/Coding Visit Charges Inpatient E&M: 13746 Disch Hosp >30min
== END 2025-05-21 14:59 | disposition home health service (06) | DRG 180 ==
PROVIDERS: Hospitalist; Internal Medicine; Internal Medicine Critical Care Medicine; Admitting Provider Internal Medicine; PCP Family Medicine; Visit Provider Family Medicine
DX: C34.12 Malignant neoplasm of upper lobe, left bronchus or lung (principal); J18.8 Other pneumonia, unspecified organism; E22.2 Syndrome of inappropriate secretion of antidiuretic hormone; J44.1 Chronic obstructive pulmonary disease with (acute) exacerbation; J96.11 Chronic respiratory failure with hypoxia; J44.0 Chronic obstructive pulmonary disease with (acute) lower respiratory infection; J91.0 Malignant pleural effusion; D63.8 Anemia in other chronic diseases classified elsewhere; Z99.81 Dependence on supplemental oxygen; I48.91 Unspecified atrial fibrillation; E11.40 Type 2 diabetes mellitus with diabetic neuropathy, unspecified; M06.9 Rheumatoid arthritis, unspecified; I10 Essential (primary) hypertension; F32.A Depression, unspecified; E78.5 Hyperlipidemia, unspecified; F41.9 Anxiety disorder, unspecified; K21.9 Gastro-esophageal reflux disease without esophagitis; Z79.4 Long term (current) use of insulin; I25.2 Old myocardial infarction; E11.65 Type 2 diabetes mellitus with hyperglycemia; R53.81 Other malaise; G89.3 Neoplasm related pain (acute) (chronic); Z79.82 Long term (current) use of aspirin; Z79.84 Long term (current) use of oral hypoglycemic drugs; Z79.899 Other long term (current) drug therapy; Z79.51 Long term (current) use of inhaled steroids; Z87.891 Personal history of nicotine dependence
CPT/HCPCS: 32555; 36415; 71046; 71250; 80048; 80053; 80076; 80202; 82010; 82607; 82728; 82747; 82803; 82945; 82947; 82962; 83036; 83540; 83550; 83615; 83986; 84145; 84157; 85014; 85025; 85610; 85730; 87040; 87070; 87075; 87205; 87449; 87633; 87635; 87641; 88108; 88305; 88313; 89050; 93005; 93306; 94640; 94668; 94762; 97116; 97162; 97165; 97530; 97535; A4216; J0696; J1938